=== PATIENT | female | born 1995 | race Caucasian/White ===

== ENCOUNTER 2018-11-04 14:46 | Emergency (ER) | payer OTHER ==
--- OUTSIDE RECORDS SUMMARY | 2018-11-04 14:49 | XMS REPORT | Continuity of Care Document ---
:1995 Author Organization Interface Problems Problem Status Onset Date Classification Date Comments Source Reported Medications Medication Details Route Status Patient Ordering Order Source Instructions Provider Date Allergies, Adverse Reactions, Alerts Substance Category Reaction Severity Reaction Status Date Comments Source type Reported Immunizations Immunization Date Given Site Status Last Updated Comments Source Results Order Results Value Reference Date Interpretation Comments Source Name Range Vital Signs Vital Sign Value Date Comments Source Encounters Location Location Encounter Encounter Reason Attending ADM DC Status Source Details Type Number For Provider Date Date Visit Outpatient [id number] CARLEEN 12/08 Active [facility] Procedures Procedure Code Date Perfomer Comments Source
--- NOTE | 2018-11-04 17:12 | RAD REPORT ---
EXAM DESCRIPTION: RAD -Hand Left 3 View - 11/04/2018 4:59 pm CLINICAL HISTORY: Left hand pain status post injury FINDINGS: No fracture or dislocation is seen. The patient was unable to remove a ring which overlies the fourth proximal phalanx limiting bony eval uation
--- NOTE | 2018-11-04 18:03 | ER ---
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 Transition of care: patient was not received from another setting of care. Onset of symptoms was November 04, 2018. Risk Assessment: Do you want to hurt yourself or someone else? Patient reports no desire to harm self or others. Initial Sepsis Screen: Does the patient meet any 2 criteria? No. Patient's initial sepsis screen is negative. Does the patient have a suspected source of infection? No. Patient's initial sepsis screen is negative. Care prior to arrival: None. 15:11 Method Of Arrival: Ambulatory hb 15:11 Acuity: NIXON 4 hb Triage Assessment: 17:48 General: Appears uncomfortable, Behavior is calm, cooperative. Musculoskeletal:. ls4 18:09 Injury Description: CRUSHED IN DOOR. NO OUTWARD INJURY. PT REPORTS PAIN. 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 - Social history:: Smoking status: Patient/guardian denies using tobacco. - Ebola Screening: : No symptoms or risks identified at this time. Screenin:48 Abuse screen: Denies threats or abuse. Denies injuries from another. Nutritional ls4 screening: No deficits noted. Tuberculosis screening: No symptoms or risk factors identified. Fall Risk None identified. Assessment: 18:06 General: Appears in no apparent distress. Behavior is cooperative. Pain: Complains of ls4 pain in left hand Pain currently is 10 out of 10 on a pain scale. Unable to use pain scale. FLACC scale score is 2 out of 10. Neuro: No deficits noted. Cardiovascular: No deficits noted. Respiratory: No deficits noted. Musculoskeletal: No deficits noted. Vital Signs: 15:12 BP 131 / 85; Pulse 70; Resp 16; Temp 98.3; Pulse Ox 99% on R/A; Pain 10/10; hb ED Course: 14:49 Patient arrived in ED. as 15:12 Triage completed. hb 15:12 Arm band placed on. hb 17:00 Hand Left 3 View XRAY In Process Unspecified. EDMS 17:46 Laith Delaney PA is PHCP. [facility] 17:46 Young Rehman MD is Attending Physician. [facility] 17:47 Sallie Boothe, RN is Primary Nurse. ls4 17:48 Patient has correct armband on for positive identification. Placed in gown. Bed in low ls4 position. Side rails up X 1. 17:48 No provider procedures requiring assistance completed. ls4 18:06 Patient did not have IV access during this emergency room visit. ls4 Administered Medications: No medications were administered Outcome: 18:03 Discharge ordered by MD. [facility] 18:08 Discharged to home ambulatory, with family. ls4 18:08 Condition: stable 18:27 Discharge instructions given to patient, Instructed on discharge instructions, follow rb1 up and referral plans. Demonstrated understanding of instructions, follow-up care, Prescriptions given X none 18:27 Patient left the ED. rb1 Signatures: Dispatcher [employer] EDMS Laith Delaney PA PA jmm Martinez, Amelia as Barber, Rebecca, RN RN rb1 Hina Marsh RN RN Sallie Boothe, RN RN ls4
--- NOTE | 2018-11-04 18:04 | EDPHYS ---
Physician Documentation [facility] Name: Yaneth Gonzalez Age: 23 yrs Sex: Female : 1995 Arrival Date: 11/04/2018 Time: 14:49 Bed 17 Private MD: ED Physician Young Rehman HPI: 11/04 17:58 This 23 yrs old Female presents to ER via Ambulatory with complaints of Hand jmm Injury, Numbness Of Hand. 17:58 The patient or guardian reports injury, pain. Onset: The symptoms/episode jmm began/occurred acutely, just prior to arrival. Modifying factors: The symptoms are alleviated by nothing, the symptoms are aggravated by nothing. This is a 23 year old female with no chronic medical conditions that presents to the ED with left 4th finger pain after it was slammed in the door. Patient denies other injury. . 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 - Social history:: Smoking status: Patient/guardian denies using tobacco. - Ebola Screening: : No symptoms or risks identified at this time. ROS: 17:58 Constitutional: Negative for fever, chills, and weight loss, Cardiovascular: Negative jmm for chest pain, palpitations, and edema, Respiratory: Negative for shortness of breath, cough, wheezing, and pleuritic chest pain. 17:58 MS/extremity: Positive for injury or acute deformity, pain. 17:58 All other systems are negative. Exam: 17:58 Constitutional: This is a well developed, well nourished patient who is awake, alert, jmm and in no acute distress. Head/Face: atraumatic. Eyes: EOMI, no conjunctival erythema appreciated ENT: Moist Mucus Membranes Neck: Trachea midline, Supple Chest/axilla: Normal chest wall appearance and motion. Cardiovascular: Regular rate and rhythm. No edema appreciated Respiratory: Normal respirations, no respiratory distress appreciated Abdomen/GI: Non distended, soft Back: Normal ROM Skin: General appearance color normal 17:58 Musculoskeletal/extremity: left proximal 4th finger ttp, < 2 sec distal cap refill, FROM appreciated, NVI. 17:58 Skin: Appearance: Color: normal in color. 17:58 Neuro: Orientation: is normal, Mentation: is normal, Memory: is normal. 17:58 Psych: Behavior/mood is pleasant, cooperative. Vital Signs: 15:12 BP 131 / 85; Pulse 70; Resp 16; Temp 98.3; Pulse Ox 99% on R/A; Pain 10/10; hb MDM: 17:58 Patient medically screened. [facility] 18:00 Data reviewed: vital signs, nurses notes, radiologic studies, plain films. Counseling: edyta I had a detailed discussion with the patient and/or guardian regarding: the historical points, exam findings, and any diagnostic results supporting the discharge/admit diagnosis, radiology results, the need for outpatient follow up, to return to the emergency department if symptoms worsen or persist or if there are any questions or concerns that arise at home. ED course: rings were removed from the left 4th finger, NVI. plain films negative. patient advised to repeat study if pain persists after 1 week. . 11/04 15:16 Order name: Hand Left 3 View XRAY; Complete Time: 17:34 hb Administered Medications: No medications were administered Disposition: 11/04/18 18:03 Discharged to Home. Impression: Contusion of left ring finger without damage to nail. - Condition is Stable. - Discharge Instructions: Finger Sprain, Adult. - Work release form, Medication Reconciliation Form, Thank You Letter, Antibiotic Education, Prescription Opioid Use form. - Follow up: Private Physician; When: 2 - 3 days; Reason: Recheck today's complaints, Continuance of care, Re-evaluation by your physician. Addendum: 11/11/2018 09:33 Co-signature as Attending Physician, Young Rehman MD I agree with the assessment and k dr plan of care. Signatures: Dispatcher [employer] EDMS Kathe Sharma, JAIDEN-C JAIDEN-Young Whalen MD MD kdr Mickail, Joel, PA PA jmm Barber, Rebecca, VONDA FERRARI [facility] Hina Marsh RN RN Corrections: (The following items were deleted from the chart) 11/04 18:27 18:03 11/04/2018 18:03 Discharged to Home. Impression: Contusion of left ring finger rb1 without damage to nail. Condition is Stable. Forms are Medication Reconciliation Form, Thank You Letter, Antibiotic Education, Prescription Opioid Use. Follow up: Private Physician; When: 2 - 3 days; Reason: Recheck today's complaints, Continuance of care, Re-evaluation by your physician. edyta
== END 2018-11-04 18:27 | disposition home or self-care (01) ==
LOC: ER 14:46
DX: S60.042A Contusion of left ring finger without damage to nail, initial encounter (principal); W23.0XXA Caught, crushed, jammed, or pinched between moving objects, initial encounter

== ENCOUNTER 2018-12-21 13:08 | Emergency (ER) | payer OTHER ==
--- OUTSIDE RECORDS SUMMARY | 2018-12-21 13:10 | XMS REPORT | Continuity of Care Document ---
[...] Number For Provider Date Date Visit Outpatient [id number] CARLEEN 12/08 Active [facility] Procedures Procedure Code Date Perfomer Comments Source
[2018-12-21 14:18] LABS: Absolute Lymphocytes (CBC) 1.6 K/uL (0.7-4.9); Absolute Monocytes 0.6 K/uL (0.1-1.3); Basophils % 0.5 % (0-1.3); Eosinophils % 2.1 % (0-4.4); Hematocrit 41.3 % (36.0-45.0); Lymphocytes % 25.2 % (15.3-44.8); MPV 11.1 fL (7.6-11.3); Monocytes % 9.6 % (3.3-12.3); RBC Red Blood Cell Count 4.46 M/uL (3.86-4.86)
[2018-12-21 14:30] LABS: BUN Blood Urea Nitrogen 11 mg/dL (7-18); Bicarbonate 29 mmol/L (21-32); Glucose Level 77 mg/dL (74-106); Potassium 3.6 mmol/L (3.5-5.1); Sodium Level 140 mmol/L (136-145)
[2018-12-21] MEDS ORDERED: KETOROLAC 30 MG/ML INJ ONE (14:46)
[2018-12-21] MEDS ORDERED: NA CHLORIDE 0.9% 1,000 ML ONE (14:46)
--- NOTE | 2018-12-21 15:40 | RAD REPORT ---
EXAM DESCRIPTION: CT - Abdomen Pelvis W Contrast - 12/21/2018 3:12 pm CLINICAL HISTORY: Abdominal pain with vomiting COMPARISON: none. TECHNIQUE: Computed axial tomography of the abdomen pelvis was obtained. 100 cc Isovue-300 was admin istered intravenously. Oral contrast was not requested which limits evaluation of bowel. All CT scans are performed using dose optimization technique as appropriate and may include automated exposure control or mA/KV adjustment according to patient size. FINDINGS: The liver, spleen, pancreas, adrenal and left kidney appear unremarkable. Minimal right hy dronephrosis. A genitourinary calculus is not seen There is no evidence of diverticulitis. The appendix is normal. A 2 centimeter irregularly-shaped right ovarian cyst is present. Small amount of free fluid Moderate amount of stool throughout the colon IMPRESSION: A 2 centimeter irregularly-shaped right ovarian cyst is present. Small amount of free fl uid. The cyst probably has recently ruptured
--- NOTE | 2018-12-21 15:57 | ER ---
Nurse's Notes [facility] Name: Yaneth Gonzalez Age: 23 yrs Sex: Female : 1995 Arrival Date: 12/21/2018 Time: 13:09 Bed 30 Private MD: Diagnosis: Unspecified ovarian cysts Presentation: 12/21 13:25 Presenting complaint: Patient states: nausea vomiting lower abdominal pain started ch today. Transition of care: patient was not received from another setting of care. Onset of symptoms was December 21, 2018. Risk Assessment: Do you want to hurt yourself or someone else? Patient reports no desire to harm self or others. Initial Sepsis Screen: Does the patient meet any 2 criteria? No. Patient's initial sepsis screen is negative. Does the patient have a suspected source of infection? No. Patient's initial sepsis screen is negative. Care prior to arrival: None. 13:25 Method Of Arrival: Ambulatory 13:25 Acuity: NIXON 3 Triage Assessment: 13:27 General: Appears in no apparent distress. comfortable, Behavior is calm, cooperative, appropriate for age. Pain: Complains of pain in right lower quadrant and left lower quadrant Pain currently is 9 out of 10 on a pain scale. GI: Reports lower abdominal pain. 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 - Social history:: Smoking status: Patient/guardian denies using tobacco, Patient uses alcohol, occasionally. Patient/guardian denies using street drugs. - Ebola Screening: : Patient negative for fever greater than or equal to 101.5 degrees Fahrenheit, and additional compatible Ebola Virus Disease symptoms Patient denies exposure to infectious person Patient denies travel to an Ebola-affected area in the 21 days before illness onset No symptoms or risks identified at this time. Screenin:30 Abuse screen: Denies threats or abuse. Denies injuries from another. Nutritional ca1 screening: No deficits noted. Tuberculosis screening: No symptoms or risk factors identified. Fall Risk None identified. Assessment: 13:30 General: Appears in no apparent distress. comfortable, Behavior is calm, cooperative, ca1 appropriate for age. Pain: Complains of pain in abdomen and left lower quadrant and right lower quadrant Pain does not radiate. Pain currently is 9 out of 10 on a pain scale. Quality of pain is described as tender, Pain began 1 day ago. Also complains of decreased appetite, nausea. Neuro: Level of Consciousness is awake, alert, obeys commands, Oriented to person, place, time, situation. Cardiovascular: Heart tones S1 S2 present Capillary refill < 3 seconds Patient's skin is warm and dry. Respiratory: Airway is patent Respiratory effort is even, unlabored, Respiratory pattern is regular, symmetrical, Breath sounds are clear bilaterally. GI: Abdomen is round non-distended, Bowel sounds present X 4 quads. Abd is soft X 4 quads Abdomen is tender to palpation in abdomen and left lower quadrant and right lower quadrant Reports nausea, vomiting, since today. : No signs and/or symptoms were reported regarding the genitourinary system. EENT: No signs and/or symptoms were reported regarding the EENT system. Derm: Skin is intact, is healthy with good turgor, Skin is pink, warm \T\ dry. Musculoskeletal: Circulation, motion, and sensation intact. Capillary refill < 3 seconds. 14:30 Reassessment: Patient appears in no apparent distress at this time. Patient and/or ca1 family updated on plan of care and expected duration. Pain level reassessed. Patient is alert, oriented x 3, equal unlabored respirations, skin warm/dry/pink. 15:33 Reassessment: Patient appears in no apparent distress at this time. Patient and/or ca1 family updated on plan of care and expected duration. Pain level reassessed. Patient is alert, oriented x 3, equal unlabored respirations, skin warm/dry/pink. Patient states feeling better. Vital Signs: 13:27 BP 120 / 75; Pulse 74; Resp 16; Temp 98.7; Pulse Ox 100% on R/A; Weight 74.84 kg; ch Height 5 ft. 4 in. (162.56 cm); Pain 9/10; 14:30 BP 115 / 82; Pulse 78; Resp 18; Pulse Ox 97% on R/A; ca1 15:33 BP 117 / 82; Pulse 71; Resp 18; Pulse Ox 100% on R/A; ca1 13:27 Body Mass Index 28.32 (74.84 kg, 162.56 cm) ED Course: 13:09 Patient arrived in ED. as 13:25 Kathe Sharma FNP-C is [facility]. kb 13:25 Sky Che MD is Attending Physician. kb 13:26 Triage completed. 13:27 Arm band placed on left wrist. Patient placed in an exam room, on a stretcher. ch 13:30 Patient has correct armband on for positive identification. Placed in gown. Bed in low ca1 position. Call light in reach. Side rails up X 1. Pulse ox on. NIBP on. Warm blanket given. 13:30 No provider procedures requiring assistance completed. ca1 13:52 Dorita Seals, RN is Primary Nurse. ca1 14:00 Inserted saline lock: 20 gauge in right antecubital area, using aseptic technique. ca1 Blood collected. 15:12 CT completed. Patient tolerated procedure well. Patient moved to CT via wheelchair. Patient moved back from CT. 15:14 CT Abd/Pelvis - W/Contrast In Process Unspecified. EDMS 16:10 IV discontinued, intact, bleeding controlled, No redness/swelling at site. Pressure ca1 dressing applied. Administered Medications: 14:33 Drug: NS 0.9% 1000 ml Route: IV; Rate: 1000 ml; Site: right antecubital; ca1 15:30 Follow up: Response: No adverse reaction; IV Status: Completed infusion ca1 14:34 Drug: TORadol 30 mg Route: IVP; Site: right antecubital; ca1 15:30 Follow up: Response: No adverse reaction; Pain is decreased ca1 Outcome: 15:57 Discharge ordered by . kb 16:12 Discharged to home ambulatory. ca1 16:12 Condition: stable 16:12 Discharge instructions given to patient, Instructed on discharge instructions, follow up and referral plans. medication usage, Demonstrated understanding of instructions, follow-up care, medications, Prescriptions given X 2. 16:13 Patient left the ED. ca1 Signatures: Dispatcher [employer] EDMS Kathe Sharma FNP-C FNP-Karina Rivera, RN RN Monica Sam Amelia as Dorita Seals, VONDA RN ca1
--- NOTE | 2018-12-21 15:58 | EDPHYS ---
Physician Documentation [facility] Name: Yaneth Gonzalez Age: 23 yrs Sex: Female : 1995 Arrival Date: 12/21/2018 Time: 13:09 Bed 30 Private MD: ED Physician Sky Che HPI: 12/21 14:46 This 23 yrs old Female presents to ER via Ambulatory with complaints of kb Abdominal Pain. 14:46 The patient presents with abdominal pain in the lower abdomen. Onset: The kb symptoms/episode began/occurred 2 day(s) ago. The symptoms do not radiate. Associated signs and symptoms: Pertinent positives: nausea and vomiting, Pertinent negatives: anorexia, blood in stools, chest pain, constipation, diarrhea, dysuria, fever, headache, hematuria, palpitations, shortness of breath, vaginal discharge, vomiting blood. The symptoms are described as constant. Modifying factors: The symptoms are alleviated by nothing, the symptoms are aggravated by pressure. Severity of pain: At its worst the pain was moderate in the emergency department the pain is unchanged. The patient has not experienced similar symptoms in the past. The patient has not recently seen a physician. 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 - Social history:: Smoking status: Patient/guardian denies using tobacco, Patient uses alcohol, occasionally. Patient/guardian denies using street drugs. - Ebola Screening: : Patient negative for fever greater than or equal to 101.5 degrees Fahrenheit, and additional compatible Ebola Virus Disease symptoms Patient denies exposure to infectious person Patient denies travel to an Ebola-affected area in the 21 days before illness onset No symptoms or risks identified at this time. ROS: 14:45 Constitutional: Negative for fever, chills, and weight loss, ENT: Negative for injury, kb pain, and discharge, Neck: Negative for injury, pain, and swelling, Cardiovascular: Negative for chest pain, palpitations, and edema, Respiratory: Negative for shortness of breath, cough, wheezing, and pleuritic chest pain, Back: Negative for injury and pain, : Negative for injury, bleeding, discharge, and swelling, MS/Extremity: Negative for injury and deformity, Skin: Negative for injury, rash, and discoloration, Neuro: Negative for headache, weakness, numbness, tingling, and seizure. 14:45 Abdomen/GI: Positive for abdominal pain, nausea and vomiting, Negative for constipation, abdominal cramps, abdominal distension, anorexia. Exam: 14:45 Constitutional: This is a well developed, well nourished patient who is awake, alert, kb and in no acute distress. Head/Face: Normocephalic, atraumatic. ENT: Nares patent. No nasal discharge, no septal abnormalities noted. Tympanic membranes are normal and external auditory canals are clear. Oropharynx with no redness, swelling, or masses, exudates, or evidence of obstruction, uvula midline. Mucous membranes moist. Neck: Trachea midline, no thyromegaly or masses palpated, and no cervical lymphadenopathy. Supple, full range of motion without nuchal rigidity, or vertebral point tenderness. No Meningismus. Chest/axilla: Normal chest wall appearance and motion. Nontender with no deformity. No lesions are appreciated. Cardiovascular: Regular rate and rhythm with a normal S1 and S2. No gallops, murmurs, or rubs. Normal PMI, no JVD. No pulse deficits. Respiratory: Lungs have equal breath sounds bilaterally, clear to auscultation and percussion. No rales, rhonchi or wheezes noted. No increased work of breathing, no retractions or nasal flaring. Back: No spinal tenderness. No costovertebral tenderness. Full range of motion. Skin: Warm, dry with normal turgor. Normal color with no rashes, no lesions, and no evidence of cellulitis. MS/ Extremity: Pulses equal, no cyanosis. Neurovascular intact. Full, normal range of motion. Neuro: Awake and alert, GCS 15, oriented to person, place, time, and situation. Cranial nerves II-XII grossly intact. Motor strength 5/5 in all extremities. Sensory grossly intact. Cerebellar exam normal. Normal gait. 14:45 Abdomen/GI: Inspection: abdomen appears normal, Bowel sounds: normal, in all quadrants, Palpation: soft, in all quadrants, moderate abdominal tenderness, in the right lower quadrant and left lower quadrant. Vital Signs: 13:27 BP 120 / 75; Pulse 74; Resp 16; Temp 98.7; Pulse Ox 100% on R/A; Weight 74.84 kg; ch Height 5 ft. 4 in. (162.56 cm); Pain 9/10; 14:30 BP 115 / 82; Pulse 78; Resp 18; Pulse Ox 97% on R/A; ca1 15:33 BP 117 / 82; Pulse 71; Resp 18; Pulse Ox 100% on R/A; ca1 13:27 Body Mass Index 28.32 (74.84 kg, 162.56 cm) ch MDM: 13:30 Patient medically screened. kb 14:45 Data reviewed: vital signs, nurses notes. Data interpreted: Pulse oximetry: on room air kb is 97 %. Interpretation: normal. 15:56 Counseling: I had a detailed discussion with the patient and/or guardian regarding: the kb historical points, exam findings, and any diagnostic results supporting the discharge/admit diagnosis, lab results, radiology results, the need for outpatient follow up, a family practitioner, an OB/Gyne specialist, to return to the emergency department if symptoms worsen or persist or if there are any questions or concerns that arise at home. 12/21 13:41 Order name: Basic Metabolic Panel; Complete Time: 14:30 kb 12/21 13:41 Order name: CBC with Diff; Complete Time: 14:29 kb 12/21 14:11 Order name: Urine Dipstick--Ancillary (enter results) bd 12/21 14:11 Order name: Urine --Ancillary (enter results) bd 12/21 14:30 Order name: CT Abd/Pelvis - W/Contrast; Complete Time: 15:56 kb 12/21 13:41 Order name: IV Saline Lock; Complete Time: 14:09 kb 12/21 13:41 Order name: Labs collected and sent; Complete Time: 14:09 kb 12/21 13:41 Order name: Urine Test (obtain specimen); Complete Time: 14:09 kb 12/21 13:41 Order name: Urine Dipstick-Ancillary (obtain specimen); Complete Time: 14:09 kb Administered Medications: 14:33 Drug: NS 0.9% 1000 ml Route: IV; Rate: 1000 ml; Site: right antecubital; ca1 15:30 Follow up: Response: No adverse reaction; IV Status: Completed infusion ca1 14:34 Drug: TORadol 30 mg Route: IVP; Site: right antecubital; ca1 15:30 Follow up: Response: No adverse reaction; Pain is decreased ca1 Disposition: 18:03 Co-signature as Attending Physician, Sky Che MD. rn Disposition: 12/21/18 15:57 Discharged to Home. Impression: Unspecified ovarian cysts. - Condition is Stable. - Discharge Instructions: Ovarian Cyst, [id number]. - Prescriptions for Zofran 4 mg Oral Tablet - take 1 tablet by ORAL route every 6 hours As needed; 20 tablet. Diclofenac Sodium 75 mg Oral Tablet, Delayed Release (E.C.) - take 1 tablet by ORAL route 2 times per day As needed; 30 tablet. - Medication Reconciliation Form, Thank You Letter, Antibiotic Education, Prescription Opioid Use, Work release form form. - Follow up: Emergency Department; When: As needed; Reason: Worsening of condition. Follow up: Private Physician; When: 2 - 3 days; Reason: Recheck today's complaints, Continuance of care, Re-evaluation by your physician. Signatures: Dispatcher [employer] EDMS Kathe Sharma, HEAD STOCK OPERATOR-C HEAD STOCK OPERATOR-CkKarina Conteh, RN RN Sky Che MD MD rn AcobDorita RN RN ca1 Corrections: (The following items were deleted from the chart) 16:13 15:57 12/21/2018 15:57 Discharged to Home. Impression: Unspecified ovarian cysts. ca1 Condition is Stable. Forms are Medication Reconciliation Form, Thank You Letter, Antibiotic Education, Prescription Opioid Use. Follow up: Emergency Department; When: As needed; Reason: Worsening of condition. Follow up: Private Physician; When: 2 - 3 days; Reason: Recheck today's complaints, Continuance of care, Re-evaluation by your physician. kb
[2018-12-21 19:49] LABS: Urine Blood NEGATIVE (NEG); Urine Glucose NEGATIVE (NEG); Urine Protein NEGATIVE (NEG); Urine pH 5.5 (5.0-7.0)
== END 2018-12-21 16:13 | disposition home or self-care (01) ==
LOC: ER 13:08
DX: N83.209 Unspecified ovarian cyst, unspecified side (principal)
CPT/HCPCS: 36415; 74177; 80048; 81003; 81025; 85025; 96361; 96374; 99284; J7030; Q9967

== ENCOUNTER 2019-01-09 18:40 | Emergency (ER) | payer OTHER ==
--- OUTSIDE RECORDS SUMMARY | 2019-01-09 18:42 | XMS REPORT | Continuity of Care Document ---
[...] Number For Provider Date Date Visit Outpatient [id number] CARLEEN 12/08 Active [facility] Isra Procedures Procedure Code Date Perfomer Comments Source
--- OUTSIDE RECORDS SUMMARY | 2019-01-09 18:42 | XMS REPORT ---
:1995 [facility] [address] [place] [address] Care Team Providers Name Role Phone Unavailable Unavailable Unavailable Problems This patient has no known problems. Allergies, Adverse Reactions, Alerts This patient has no known allergies or adverse reactions. Medications This patient has no known medications.
[2019-01-09] MEDS ORDERED: ACT CHARCOAL/SORB 50 GM/240ML ONE (19:11)
[2019-01-09] MEDS ORDERED: NA CHLORIDE 0.9% 1,000 ML ONE (19:11)
[2019-01-09] MEDS ORDERED: PROMETHAZINE 25 MG/ML VIAL ONE ×2 (19:19→21:13)
[2019-01-09] MEDS ORDERED: ACTIVATED CHARCOAL 25 GM/120 ML TUBE ONE (19:22)
[2019-01-09 19:38] LABS: Absolute Lymphocytes (CBC) 2.2 K/uL (0.7-4.9); Absolute Monocytes 0.7 K/uL (0.1-1.3); Absolute Neutrophil 5.3 K/uL (1.8-8.0); Basophils % 0.7 % (0-1.3); Lymphocytes % 25.9 % (15.3-44.8); MPV 11.4 fL (7.6-11.3); Monocytes % 8.7 % (3.3-12.3); RBC Red Blood Cell Count 4.34 M/uL (3.86-4.86)
[2019-01-09 19:53] LABS: Protime INR 0.97
[2019-01-09 19:59] LABS: ALT/SGPT 33 U/L (12-78); AST/SGOT 18 U/L (15-37); Albumin 4.6 g/dL (3.4-5.0); Alkaline Phosphatase 94 U/L (45-117); BUN Blood Urea Nitrogen 15 mg/dL (7-18); Bicarbonate 27 mmol/L (21-32); Bilirubin Direct < 0.1 mg/dL (0-0.2); Bilirubin Total 0.3 mg/dL (0.2-1.0); Glucose Level 98 mg/dL (74-106); Potassium 3.4 mmol/L (3.5-5.1); Protein, Total 8.1 g/dL (6.4-8.2); Sodium Level 140 mmol/L (136-145)
[2019-01-09 21:41] LABS: Urine Blood NEGATIVE (NEG); Urine Glucose NEGATIVE (NEG); Urine Protein NEGATIVE (NEG)
[2019-01-09 21:41] LABS: Barbiturates NEGATIVE (NEGATIVE); Benzodiazepines NEGATIVE (NEGATIVE); Cocaine NEGATIVE (NEGATIVE); METHAMPHETAM NEGATIVE (NEGATIVE); Methadone NEGATIVE (NEGATIVE); Opiates NEGATIVE (NEGATIVE); Phencyclidine NEGATIVE (NEGATIVE); THC Cannibis NEGATIVE (NEGATIVE)
[2019-01-10] MEDS ORDERED: POTASSIUM 25 MEQ EFFERV TAB ONE (07:49)
--- NOTE | 2019-01-10 08:45 | EKG ---
Test Date: 2019-01-10 Test Time: 01:05:02 Director Web: TORSTEN MEASUREMENT RESULTS: Intervals: Rate: 63 VT: 162 QRSD: 94 QT: 392 QTc: 401 [place]: P: 55 VT: 162 QRS: 55 T: 23 INTERPRETIVE STATEMENTS: Normal sinus rhythm with sinus arrhythmia Normal ECG Compared to ECG 01/09/2019 18:46:11 No significant changes Electronically Signed On 01-10-19 08:44:45 CDT by Bennett Baker
--- NOTE | 2019-01-10 08:48 | EKG ---
Test Date: 2019-01-09 Test Time: 18:46:11 Wet Char Conveyor Tender: MEASUREMENT RESULTS: Intervals: Rate: 80 NH: 148 QRSD: 96 QT: 378 QTc: 435 [place]: P: 60 NH: 148 QRS: 44 T: 30 INTERPRETIVE STATEMENTS: Normal sinus rhythm Normal ECG No previous ECG available for comparison Electronically Signed On 01-10-19 08:47:40 CDT by Bennett Baker
--- NOTE | 2019-01-10 10:10 | ER ---
Nurse's Notes [facility] Name: Yaneth Gonzalez Age: 23 yrs Sex: Female : 1995 Arrival Date: 01/09/2019 Time: 18:40 Bed 4 Private MD: Diagnosis: Suicidal ideations;Suicide attempt Presentation: 01/09 18:46 Presenting complaint: Patient states: i took around 15- 20 tablets of flexeril about 20 hj mins ago; pt on triage was anxious and crying; " i feel like im overwhelm tight now". Transition of care: patient was not received from another setting of care. Onset of symptoms was January 09, 2019. Risk Assessment: Do you want to hurt yourself or someone else? Patient reports no desire to harm self or others. Initial Sepsis Screen: Does the patient meet any 2 criteria? No. Patient's initial sepsis screen is negative. Does the patient have a suspected source of infection? No. Patient's initial sepsis screen is negative. Care prior to arrival: None. 18:46 Method Of Arrival: Ambulatory 18:46 Acuity: NIXON 2 hj 18:51 Note Denilson MILES called poison control and was recommended to do activated charcoal and hj administer fluids;. Triage Assessment: 18:48 General: Appears in no apparent distress. uncomfortable, Behavior is calm, cooperative, hj appropriate for age. Pain: Complains of pain in abdomen. Historical: - Allergies: 18:47 No Known Allergies; hj - Home Meds: 18:47 None [Active]; hj - PMHx: 18:47 Ovarian cyst; polycystic ovary disease; hj - PSHx: 18:47 ovarian cyst removed.; hj - Immunization history:: Adult Immunizations up to date. - Social history:: Smoking status: Patient/guardian denies using tobacco, Patient/guardian denies using alcohol. - Ebola Screening: : Patient negative for fever greater than or equal to 101.5 degrees Fahrenheit, and additional compatible Ebola Virus Disease symptoms Patient denies exposure to infectious person Patient denies travel to an Ebola-affected area in the 21 days before illness onset. Screenin:48 Abuse screen: Denies threats or abuse. Denies injuries from another. Nutritional hj screening: No deficits noted. Tuberculosis screening: No symptoms or risk factors identified. Fall Risk None identified. Assessment: 19:33 Reassessment: pt denies any other SI attempts. pt stated SI started 3 to 4 months CLINICAL RN LIAISON. ak1 pt asked to call her mother and wishes for her mother to be the only visitor, pt does not wish to see her at this time and registration has been notified. pt informed of process to be medically cleared then evaluated for inpatient psychiatric facility. . General: Appears in no apparent distress. Behavior is calm, cooperative, appropriate for age. Pain: Denies pain. Neuro: Level of Consciousness is awake, alert, obeys commands, Oriented to person, place, time, situation, Licensed Embalmer are equal bilaterally Moves all extremities. Speech is normal, Facial symmetry appears normal. Cardiovascular: No deficits noted. Respiratory: No deficits noted. GI: No signs and/or symptoms were reported involving the gastrointestinal system. : No signs and/or symptoms were reported regarding the genitourinary system. EENT: No signs and/or symptoms were reported regarding the EENT system. Derm: No signs and/or symptoms reported regarding the dermatologic system. Musculoskeletal: No signs and/or symptoms reported regarding the musculoskeletal system. 21:50 Reassessment: Patient appears in no apparent distress at this time. No changes from ak1 previously documented assessment. Patient and/or family updated on plan of care and expected duration. Pain level reassessed. Patient is alert, oriented x 3, equal unlabored respirations, skin warm/dry/pink. mother at bedside stated pt can not take zoloft due to increased suicidal ideations while on zoloft previously. pt mother stated pt verbalized overdosing due to and asked that the not be able to contact pt. pt verbalized that she does not wish to see or speak to her at this time. 21:50 Reassessment: pt ambulated to restroom with steady gait. pt sister at bedside. sitter ak1 remains at bedside. 01/10 02:20 Reassessment: Patient's mother Celine Alcala requested she be notified when patient dd is transferred. Number is [phone].. 03:21 Reassessment: Patient appears in no apparent distress at this time. pt resting with ak1 even unlabored resp waiting on psychiatric facility acceptance. 04:24 Reassessment: Patient appears in no apparent distress at this time. No changes from ak1 previously documented assessment. 04:57 Reassessment: [facility]ary [facility]. ak1 07:00 Reassessment: RECD REPORT FROM KENZIE FERRARI. 23YO WF P/W SI AND OVERDOSE. PT MEDICALLY bp CLEARED, PSYCH PLACEMENT PENDING. 07:00 Reassessment: Pt resting in bed with eyes closed, respirations even an unlabored, skin aa5 is pink/warm/dry. NSR on monitor. . 07:06 Reassessment: report given to Zay Redmond RN and Cain Mendoza RN. ak1 07:40 General: Appears comfortable. Pain: Denies pain. Neuro: Level of Consciousness is aa5 awake, alert, obeys commands, Oriented to person, place, time, situation, Appropriate for age Moves all extremities. Speech is normal, Facial symmetry appears normal, Pupils are PERRLA. Cardiovascular: Rhythm is sinus rhythm. Respiratory: Airway is patent Respiratory effort is even, unlabored, Respiratory pattern is regular, symmetrical. Derm: Skin is pink, warm \\T\\ dry. 07:45 Reassessment: Pt easy to awaken to verbal stimuli. Notified pt belongings have to be aa5 taken away outside her room for psych precautions. Pt began to cry and states "you are ruining my life and I still want to call my mom to talk to her because she helps keep me calm". Notified pt that she can call her mom using the ER's phone. Told pt to call her mom using her cell phone at this time to notify her that her belongings will be taken away at this time. Pt upset, states "my mom says you are not touching any of my stuff until she gets here". Notified pt her belongings may be released to her mom per her request. Pt's belongings with pt's sitter at this time awaiting to be picked up by pt's mother. Pt with cell phone at bedside at this time, awaiting on her mom. Pt sitting up in bed awaiting breakfast tray at this time. . 07:50 Reassessment: Pt states "I wanted to hurt myself yesterday but not today, right now I aa5 just want to leave". Pt states "my mom can help me", pt also states she is willing to follow-up outpatient with mother's support. Notified pt that Doctor will notified. Dr. Corado was notified. . 08:22 Reassessment: Pt given breakfast tray at this time. . aa5 08:40 Reassessment: Patient is alert, oriented x 3, equal unlabored respirations, skin aa5 warm/dry/pink. Pt's mother at bedside. Pt finished eating breakfast. . 09:59 Reassessment: Patient appears in no apparent distress at this time. No changes from ch previously documented assessment. pt in room, sitting upright, resps even and unlabored, no s/s of distress. pt is talking to her family and doloris the tech. awaiting physician to speak with pt and family. Overdose: 01/09 21:52 Patient took 15 Flexeril pills. Overdose occurred 30 minuets prior to arrival. ak1 Vital Signs: 18:48 BP 136 / 91; Pulse 79; Resp 18; Temp 99.0(TE); Pulse Ox 98% on R/A; Weight 74.84 kg; hj Height 5 ft. 4 in. (162.56 cm); 20:43 Temp 98(T); ag4 21:50 BP 124 / 84; Pulse 70; Resp 14; Pulse Ox 99% on R/A; Pain 0/10; ak1 23:06 BP 96 / 59; Pulse 83; Resp 17; Pulse Ox 95% on R/A; dd 23:06 Pain 0/10; dd 01/10 00:07 BP 106 / 70; Pulse 70; Resp 12; Pulse Ox 95% on R/A; Pain 0/10; dd 01:08 BP 112 / 73; Pulse 74; Resp 17; Pulse Ox 96% on R/A; dd 02:04 BP 114 / 74; Pulse 65; Resp 16; Pulse Ox 99% on R/A; dd 03:02 BP 102 / 69; Pulse 80; Resp 12; Pulse Ox 97% on R/A; em4 03:46 BP 102 / 69; Pulse 80; Resp 11; Pulse Ox 98% on R/A; em4 04:17 BP 98 / 61; Pulse 73; Resp 12; Pulse Ox 95% on R/A; em4 04:50 BP 100 / 61; Pulse 64; Resp 16; Temp 98.4; Pulse Ox 100% on R/A; mw2 07:15 BP 92 / 73; Pulse 74; Resp 16 S; Temp 98.3(O); Pulse Ox 97% on R/A; Pain 0/10; aa5 08:45 BP 116 / 71; Pulse 74; Resp 18 S; Pulse Ox 99% on R/A; aa5 10:18 BP 124 / 83; Pulse 78; Resp 16; Temp 98.0(O); Pulse Ox 99% on R/A; mh5 01/09 18:48 Body Mass Index 28.32 (74.84 kg, 162.56 cm) ED Course: 01/09 18:40 Patient arrived in ED. mr 18:45 Inserted saline lock: 18 gauge in right antecubital area, using aseptic technique. ds4 Blood collected. 18:47 Triage completed. hj 18:48 Denilson Bautista PA is PHCP. jr8 18:48 Yan Corado MD is Attending Physician. jr8 18:48 Arm band placed on right wrist. hj 18:48 Patient has correct armband on for positive identification. Placed in gown. Bed in low hj position. Call light in reach. Side rails up X 1. 19:29 Safety checks: Items removed: yes. Door open/sign placed on door: Patient placed in ag4 hallway bed. yes. Family/friend present: no. Sitter present: Yes. 19:33 Kenzie De La Rosa RN is Primary Nurse. ak1 19:44 Safety checks: Items removed: yes. Door open/sign placed on door: Patient placed in ag4 hallway bed. yes. Family/friend present: no. Sitter present: Yes. 19:59 Safety checks: Items removed: yes. Door open/sign placed on door: Patient placed in ag4 hallway bed. yes. Family/friend present: no. Sitter present: Yes. 20:14 Safety checks: Items removed: yes. Door open/sign placed on door: Patient placed in ag4 hallway bed. yes. Family/friend present: no. Sitter present: Yes. 20:29 Safety checks: Items removed: yes. Door open/sign placed on door: Patient placed in ag4 hallway bed. yes. Family/friend present: no. Sitter present: Yes. 20:45 Safety checks: Items removed: yes. Door open/sign placed on door: Family/friend ag4 present: yes. Family/friends encouraged to stay with patient. Sitter present: Yes. 21:00 Safety checks: Items removed: yes. Door open/sign placed on door: Patient placed in ag4 hallway bed. yes. Family/friend present: yes. Sitter present: Yes. 21:14 Safety checks: Items removed: yes. Door open/sign placed on door: Patient placed in ag4 hallway bed. yes. Family/friend present: yes. Family/friends encouraged to stay with patient. Sitter present: Yes. 21:28 Safety checks: Items removed: yes. Door open/sign placed on door: Patient placed in ag4 hallway bed. yes. Family/friend present: no. Sitter present: Yes. 21:45 Safety Checks: Personal items have been removed. The door is open or patient has been ak1 placed in a hallway bed/chair. A family member and/or friend is present and encouraged to stay. Sitter present at this time. 22:00 Safety Checks: Personal items have been removed. The door is open or patient has been dd placed in a hallway bed/chair. Patientrestingin bed with eyes closed A family member and/or friend is present and encouraged to stay. There are no family/friend visitors at this time Sitter present at this time. 22:15 Safety Checks: Personal items have been removed. The door is open or patient has been dd placed in a hallway bed/chair. There are no family/friend visitors at this time Sitter present at this time. Pt resting in bed with eyes closed. 22:30 Safety Checks: Personal items have been removed. The door is open or patient has been dd placed in a hallway bed/chair. There are no family/friend visitors at this time Sitter present at this time. Patient resting in bed with eyes closed. 22:46 Safety Checks: Personal items have been removed. The door is open or patient has been dd placed in a hallway bed/chair. There are no family/friend visitors at this time Patient resting in bed with eyes closed. Sitter present at this time. 23:00 Safety Checks: Personal items have been removed. The door is open or patient has been dd placed in a hallway bed/chair. There are no family/friend visitors at this time Sitter present at this time. Patient resting in bed with eyes closed. 23:15 Safety Checks: Personal items have been removed. The door is open or patient has been dd placed in a hallway bed/chair. There are no family/friend visitors at this time Sitter present at this time. Patient resting in bed with eyes closed. 23:30 Safety Checks: Personal items have been removed. The door is open or patient has been dd placed in a hallway bed/chair. There are no family/friend visitors at this time Sitter present at this time. 23:40 Assisted to bathroom. pt ambulated to bathroom, steady gait. Void x1. dd 23:45 Safety Checks: Personal items have been removed. The door is open or patient has been dd placed in a hallway bed/chair. There are no family/friend visitors at this time Sitter present at this time. Patient resting in bed with eyes closed. 01/10 00:00 Safety Checks: Personal items have been removed. The door is open or patient has been dd placed in a hallway bed/chair. There are no family/friend visitors at this time Sitter present at this time. Patient resting in bed with eyes closed. 00:15 Safety Checks: Personal items have been removed. The door is open or patient has been dd placed in a hallway bed/chair. A family member and/or friend is present and encouraged to stay. Sitter present at this time. Patient resting in bed mother at bedside talking with patient. 00:30 Safety Checks: Personal items have been removed. The door is open or patient has been dd placed in a hallway bed/chair. A family member and/or friend is present and encouraged to stay. There are no family/friend visitors at this time Sitter present at this time. [facility] at [facility]. 00:45 Safety Checks: Personal items have been removed. The door is open or patient has been dd placed in a hallway bed/chair. There are no family/friend visitors at this time Sitter present at this time. Patient sitting in bed. 00:57 Urine --Ancillary (enter results) Sent. ak1 00:57 Urine Dipstick--Ancillary (enter results) Sent. ak1 01:00 Safety Checks: Personal items have been removed. The door is open or patient has been dd placed in a hallway bed/chair. There are no family/friend visitors at this time Sitter present at this time. 01:15 Safety Checks: Personal items have been removed. The door is open or patient has been dd placed in a hallway bed/chair. There are no family/friend visitors at this time Sitter present at this time. 01:18 Assisted to bathroom. Pt ambulated to the bathroom, Steady gait. BM x1/. dd 01:20 faxed patients information to all psych facilities. mw2 01:30 Safety Checks: Personal items have been removed. The door is open or patient has been dd placed in a hallway bed/chair. There are no family/friend visitors at this time Sitter present at this time. 01:33 Assisted to bathroom. Pt ambulated to bathroom. Steady gait. BM x 1. dd 01:45 Safety Checks: Personal items have been removed. The door is open or patient has been dd placed in a hallway bed/chair. There are no family/friend visitors at this time Sitter present at this time. Patient resting in bed. 02:00 Safety Checks: Personal items have been removed. The door is open or patient has been dd placed in a hallway bed/chair. There are no family/friend visitors at this time Sitter present at this time. 02:02 Assisted to bathroom. Pt ambulated to bathroom. Steady gait. BM x1. dd 02:15 Safety Checks: Personal items have been removed. The door is open or patient has been dd placed in a hallway bed/chair. There are no family/friend visitors at this time Sitter present at this time. Pt resting in bed. 02:27 Safety checks: Items removed: yes. Door open/sign placed on door: yes. Family/friend em4 present: no. Sitter present: Yes. 02:30 Safety Checks: Personal items have been removed. The door is open or patient has been ak1 placed in a hallway bed/chair. There are no family/friend visitors at this time Sitter present at this time. 02:45 Safety Checks: Personal items have been removed. The door is open or patient has been ak1 placed in a hallway bed/chair. There are no family/friend visitors at this time Sitter present at this time. 02:45 Safety checks: Items removed: yes. Door open/sign placed on door: yes. Family/friend em4 present: no. Sitter present: Yes. 03:00 Safety Checks: Personal items have been removed. The door is open or patient has been ak1 placed in a hallway bed/chair. There are no family/friend visitors at this time Sitter present at this time. 03:00 Safety checks: Items removed: yes. Door open/sign placed on door: yes. Family/friend em4 present: no. Sitter present: Yes. 03:15 Safety Checks: Personal items have been removed. The door is open or patient has been ak1 placed in a hallway bed/chair. There are no family/friend visitors at this time Sitter present at this time. 03:16 Safety checks: Items removed: yes. Door open/sign placed on door: yes. Family/friend em4 present: no. Sitter present: Yes. 03:30 Safety Checks: Personal items have been removed. The door is open or patient has been ak1 placed in a hallway bed/chair. There are no family/friend visitors at this time Sitter present at this time. 03:31 Safety checks: Items removed: yes. Door open/sign placed on door: yes. Family/friend em4 present: no. Sitter present: Yes. 03:45 Safety Checks: Personal items have been removed. The door is open or patient has been ak1 placed in a hallway bed/chair. There are no family/friend visitors at this time Sitter present at this time. 03:45 Safety checks: Items removed: yes. Door open/sign placed on door: yes. Family/friend em4 present: no. Sitter present: Yes. 03:59 Safety checks: Items removed: yes. Door open/sign placed on door: yes. Family/friend em4 present: no. Sitter present: Yes. 04:00 Safety Checks: Personal items have been removed. The door is open or patient has been ak1 placed in a hallway bed/chair. A family member and/or friend is present and encouraged to stay. Sitter present at this time. 04:15 Safety Checks: Personal items have been removed. The door is open or patient has been ak1 placed in a hallway bed/chair. A family member and/or friend is present and encouraged to stay. Sitter present at this time. 04:16 Safety checks: Items removed: yes. Door open/sign placed on door: yes. Family/friend em4 present: no. Sitter present: Yes. 04:30 Safety Checks: Personal items have been removed. The door is open or patient has been rr5 placed in a hallway bed/chair. A family member and/or friend is present and encouraged to stay. Sitter present at this time. 04:30 Safety checks: Items removed: yes. Door open/sign placed on door: yes. Family/friend ar5 present: no. Sitter present: Yes. 04:45 Safety Checks: Personal items have been removed. The door is open or patient has been rr5 placed in a hallway bed/chair. A family member and/or friend is present and encouraged to stay. Sitter present at this time. 04:45 Safety checks: Items removed: yes. Door open/sign placed on door: yes. Family/friend ar5 present: no. Sitter present: Yes. 05:00 Safety Checks: Personal items have been removed. The door is open or patient has been rr5 placed in a hallway bed/chair. There are no family/friend visitors at this time Sitter present at this time. 05:00 Safety checks: Items removed: yes. Door open/sign placed on door: yes. Family/friend ar5 present: no. Sitter present: Yes. 05:15 Safety Checks: Personal items have been removed. The door is open or patient has been rr5 placed in a hallway bed/chair. There are no family/friend visitors at this time Sitter present at this time. 05:15 Safety checks: Items removed: yes. Door open/sign placed on door: yes. Family/friend mw2 present: no. Sitter present: Yes. 05:30 Safety Checks: Personal items have been removed. The door is open or patient has been rr5 placed in a hallway bed/chair. There are no family/friend visitors at this time Sitter present at this time. 05:30 Safety Checks: Personal items have been removed. The door is open or patient has been ak1 placed in a hallway bed/chair. A family member and/or friend is present and encouraged to stay. There are no family/friend visitors at this time Sitter present at this time. 05:30 Safety checks: Items removed: yes. Door open/sign placed on door: yes. Family/friend mw2 present: no. Sitter present: Yes. 05:45 Safety Checks: Personal items have been removed. The door is open or patient has been rr5 placed in a hallway bed/chair. There are no family/friend visitors at this time. 05:45 Safety Checks: Personal items have been removed. The door is open or patient has been ak1 placed in a hallway bed/chair. A family member and/or friend is present and encouraged to stay. There are no family/friend visitors at this time Sitter present at this time. 05:45 Safety checks: Items removed: yes. Door open/sign placed on door: yes. Family/friend mw2 present: no. Sitter present: Yes. 06:00 Safety Checks: Personal items have been removed. The door is open or patient has been rr5 placed in a hallway bed/chair. There are no family/friend visitors at this time Sitter present at this time. 06:00 Safety Checks: Personal items have been removed. The door is open or patient has been ak1 placed in a hallway bed/chair. A family member and/or friend is present and encouraged to stay. There are no family/friend visitors at this time Sitter present at this time. 06:00 Safety checks: Items removed: yes. Door open/sign placed on door: yes. Family/friend mw2 present: no. Sitter present: Yes. 06:15 Safety Checks: Personal items have been removed. The door is open or patient has been rr5 placed in a hallway bed/chair. There are no family/friend visitors at this time Sitter present at this time. 06:15 Safety Checks: Personal items have been removed. The door is open or patient has been ak1 placed in a hallway bed/chair. A family member and/or friend is present and encouraged to stay. There are no family/friend visitors at this time Sitter present at this time. 06:15 Safety checks: Items removed: yes. Door open/sign placed on door: yes. Family/friend mw2 present: no. Sitter present: Yes. 06:30 Safety Checks: Personal items have been removed. The door is open or patient has been rr5 placed in a hallway bed/chair. There are no family/friend visitors at this time Sitter present at this time. 06:30 Safety Checks: Personal items have been removed. The door is open or patient has been ak1 placed in a hallway bed/chair. A family member and/or friend is present and encouraged to stay. There are no family/friend visitors at this time Sitter present at this time. 06:45 Safety Checks: Personal items have been removed. The door is open or patient has been rr5 placed in a hallway bed/chair. There are no family/friend visitors at this time Sitter present at this time. 06:45 Safety Checks: Personal items have been removed. The door is open or patient has been ak1 placed in a hallway bed/chair. A family member and/or friend is present and encouraged to stay. There are no family/friend visitors at this time Sitter present at this time. 07:00 Safety Checks: Personal items have been removed. The door is open or patient has been rr5 placed in a hallway bed/chair. There are no family/friend visitors at this time Sitter present at this time. 07:00 Safety Checks: Personal items have been removed. The door is open or patient has been ak1 placed in a hallway bed/chair. A family member and/or friend is present and encouraged to stay. There are no family/friend visitors at this time Sitter present at this time. 07:00 No provider procedures requiring assistance completed. aa5 07:15 Safety Checks: The door is open or patient has been placed in a hallway bed/chair. aa5 Items have not been removed Items remain on bedside table. There are no family/friend visitors at this time Sitter present at this time. 07:30 Safety Checks: The door is open or patient has been placed in a hallway bed/chair. aa5 There are no family/friend visitors at this time Sitter present at this time. 07:45 Safety Checks: Personal items have been removed. The door is open or patient has been aa5 placed in a hallway bed/chair. There are no family/friend visitors at this time Sitter present at this time. 08:00 Safety Checks: Personal items have been removed. The door is open or patient has been sg placed in a hallway bed/chair. A family member and/or friend is present and encouraged to stay. There are no family/friend visitors at this time Sitter present at this time. 08:15 Safety Checks: The door is open or patient has been placed in a hallway bed/chair. A sg family member and/or friend is present and encouraged to stay. There are no family/friend visitors at this time Sitter present at this time. 08:30 Safety Checks: Personal items have been removed. The door is open or patient has been aa5 placed in a hallway bed/chair. There are no family/friend visitors at this time. 08:45 Safety Checks: Personal items have been removed. The door is open or patient has been aa5 placed in a hallway bed/chair. A family member and/or friend is present and encouraged to stay. 09:00 Safety Checks: Personal items have been removed. The door is open or patient has been aa5 placed in a hallway bed/chair. A family member and/or friend is present and encouraged to stay. 09:15 Safety Checks: Personal items have been removed. The door is open or patient has been aa5 placed in a hallway bed/chair. A family member and/or friend is present and encouraged to stay. 09:30 Safety Checks: Personal items have been removed. The door is open or patient has been aa5 placed in a hallway bed/chair. A family member and/or friend is present and encouraged to stay. 09:45 Safety Checks: Personal items have been removed. The door is open or patient has been aa5 placed in a hallway bed/chair. A family member and/or friend is present and encouraged to stay. 09:54 Report received from Hilary. 09:55 Primary Nurse role handed off by Kenzie De La Rosa RN 09:55 Karina Denise RN is Primary Nurse. 09:56 Report given to Karina Denise RN. aa5 10:00 No apparent distress. Resting quietly. Safety Checks: Personal items have been removed. ch The door is open or patient has been placed in a hallway bed/chair. There are no family/friend visitors at this time Sitter present at this time. 10:00 Safety checks: Items removed: yes. Door open/sign placed on door: yes. Family/friend mh5 present: yes. Sitter present: Yes. 10:15 Safety checks: Items removed: yes. Door open/sign placed on door: yes. Family/friend mh5 present: yes. Sitter present: Yes. 10:20 IV discontinued, intact, bleeding controlled, No redness/swelling at site. 10:28 Safety checks: Items removed: Other: PATIENT BEING DISCHARGED WITH PARENT. 5 10:28 Patient did not have IV access during this emergency room visit. IV discontinued, mh5 Pressure dressing applied. Administered Medications: 01/09 19:03 Drug: NS 0.9% 1000 ml Route: IV; Rate: 1000 ml; Site: right antecubital; ss 21:28 Follow up: IV Status: Completed infusion; IV Intake: 1000ml ak1 01/10 00:57 Follow up: IV Status: Completed infusion ak1 01/09 19:04 Drug: Activated Charcoal Suspension (50 g/240 mL) 1 g/kg Route: PO; ss 23:11 Follow up: Response: No adverse reaction ak1 19:10 Drug: Phenergan 6.25 mg Route: IVP; Site: right antecubital; hj 23:11 Follow up: Response: No adverse reaction ak1 21:00 Drug: Phenergan 6.25 mg Route: IVP; Site: left antecubital; ak1 23:11 Follow up: Response: No adverse reaction ak1 01/10 07:40 Drug: K-Lyte Effervescent Tablet 25 mEq Route: PO; aa5 10:00 Follow up: Response: No adverse reaction ch Intake: 01/09 21:28 IV: 1000ml; Total: 1000ml. ak1 Outcome: 01/10 10:09 Discharge ordered by . [facility] 10:30 Discharged to home ambulatory, with family. 10:30 Condition: improved 10:30 Discharge instructions given to patient, family, Instructed on discharge instructions, follow up and referral plans. Demonstrated understanding of instructions, follow-up care. 10:34 Patient left the ED. Signatures: Karina Denise, RN VONDA Cain Ma RN RN sg Anderson, Corey, MD MD cha Rivera, Mary mr Christiane Marquis RN RN Hilary Frey RN RN 5 Letty Jackson RN RN Denilson Bautista PA PA jr8 Swanson, Donovan ds4 Kenzie De La Rosa RN RN il1 Sawyer Schwartz RN RN hj Martinez, Maria [facility] [place] Zay Macias RN RN bp [place], MyAna Lilia mw2 Fco Precious dd Jl Rincon RN RN rr5 Bill Montalvo ag4 Camila Disla ar5 Hayley Dhillon em4 Corrections: (The following items were deleted from the chart) 01/09 19:33 19:29 Safety checks: Items removed: yes. Door open/sign placed on door: Patient placed ag4 in hallway bed. yes. Family/friend present: no. Sitter present: Yes. ag4 20:40 20:39 Safety checks: Items removed: yes. Door open/sign placed on door: Patient placed ag4 in hallway bed. yes. Family/friend present: no. Sitter present: Yes. ag4 20:42 20:34 Safety checks: Items removed: yes. Door open/sign placed on door: Patient placed ag4 in hallway bed. yes. Family/friend present: no. Sitter present: Yes. ag4 01/10 00:36 00:30 Safety Checks: Personal items have been removed. The door is open or patient has dd been placed in a hallway bed/chair. A family member and/or friend is present and encouraged to stay. There are no family/friend visitors at this time dd 01:35 01:20 Safety Checks: Personal items have been removed. The door is open or patient has dd been placed in a hallway bed/chair. There are no family/friend visitors at this time Sitter present at this time. dd 01:36 01/09 22:18 Safety Checks: Personal items have been removed. The door is open or dd patient has been placed in a hallway bed/chair. There are no family/friend visitors at this time Sitter present at this time. Pt resting in bed with eyes closed. dd 01/10 02:17 02:15 Assisted to bathroom. Pt ambulated to the bathroom, Steady gait. BM x1/ dd dd 02:20 02:19 Assisted to bathroom. Pt ambulated to bathroom. Steady gait. BM x1. dd dd 02:37 02:30 court recording monitor on. Pulse ox on. Sitter at bedside. Cardiac monitoring not em4 applicable on this patient. em4 03:01 02:58 Safety checks: Items removed: yes. Door open/sign placed on door: yes. em4 Family/friend present: no. Sitter present: Yes. em4 07:18 07:00 BP 88 / 66; Pulse 62bpm; Resp 14bpm; Pulse Ox 98%; bp aa5 08:31 07:45 Reassessment: Pt easy to awaken to verbal stimuli. Notified pt belongings have to aa5 be taken away outside her room for psych precautions. Pt began to cry and states "you are ruining my life and I still want to call my mom to talk to her because she helps keep me calm". Notified pt that she can call her mom using the ER's phone. Told pt to call her mom using her cell phone at this time to notify her that her belongings will be taken away at this time. Pt upset, states "my mom says you are not touching any of my stuff until she gets here". Notified pt her belongings may be released to her mom per her request. Pt's belongings with pt's sitter at this time awaiting to be picked up by pt's mother. Pt sitting up in bed awaiting breakfast tray at this time. . aa5 08:53 07:15 BP 92 / 73; Pulse 74bpm; Resp 16bpm; Spontaneous; Pulse Ox 97% RA; aa5 aa5 09:03 08:45 BP 95 / 51; Pulse 80bpm; Resp 18bpm; Spontaneous; Pulse Ox 99% RA; aa5 aa5
--- NOTE | 2019-01-10 10:10 | EDPHYS ---
Physician Documentation [facility] Name: Yaneth Gonzalez Age: 23 yrs Sex: Female : 1995 Arrival Date: 01/09/2019 Time: 18:40 Bed 4 Private MD: ED Physician Yan Corado HPI: 01/09 20:15 This 23 yrs old Female presents to ER via Ambulatory with complaints of jr8 Overdose, Suicidal Ideation. 20:15 The patient presents to the emergency department after a known overdose, that was jr8 intentional. Context: Method: the patient has a confirmed or suspected ingestion, Flexeril , Time: at 18:20, Extent: the strength of the pills/capsules is 10 mg(s), the patient had a total ingestion of approximately 150 mg(s), the OD/poisoning occurred at at home, Psychiatric history: the patient has a known psychiatric disorder, depression, Previous OD/poisoning history: none. Associated signs and symptoms: Pertinent positives: shortness of breath, tearfulness, chest pain. Severity of symptoms: At their worst the symptoms were moderate in the emergency department the symptoms are unchanged. The patient has not experienced similar symptoms in the past. The patient has not recently seen a physician. Patient with history of depression. Has been off of her zoloft for about 3 months. Feeling worse throughout that time. Told her she was depressed today and then after leaving had texted her saying he was leaving and could not deal with her depression. Stated that she acutely became worse and took 15, 10 mg Flexeril in attempt to kill herself. Drove herself over here after realizing what she did. Historical: - Allergies: 18:47 No Known Allergies; hj - Home Meds: 18:47 None [Active]; hj - PMHx: 18:47 Ovarian cyst; polycystic ovary disease; hj - PSHx: 18:47 ovarian cyst removed.; hj - Immunization history:: Adult Immunizations up to date. - Social history:: Smoking status: Patient/guardian denies using tobacco, Patient/guardian denies using alcohol. - Ebola Screening: : Patient negative for fever greater than or equal to 101.5 degrees Fahrenheit, and additional compatible Ebola Virus Disease symptoms Patient denies exposure to infectious person Patient denies travel to an Ebola-affected area in the 21 days before illness onset. ROS: 20:15 Eyes: Negative for injury, pain, redness, and discharge, ENT: Negative for injury, jr8 pain, and discharge, Neck: Negative for injury, pain, and swelling, Abdomen/GI: Negative for abdominal pain, nausea, vomiting, diarrhea, and constipation, Back: Negative for injury and pain, MS/Extremity: Negative for injury and deformity, Skin: Negative for injury, rash, and discoloration, Neuro: Negative for headache, weakness, numbness, tingling, and seizure. 20:15 Cardiovascular: Positive for chest pain, Negative for edema, orthopnea, palpitations, paroxysmal nocturnal dyspnea. 20:15 Respiratory: Positive for shortness of breath. 20:15 Psych: Positive for depression, suicide gesture, suicidal ideation. Exam: 20:15 Eyes: Pupils equal round and reactive to light, extra-ocular motions intact. Lids and jr8 lashes normal. Conjunctiva and sclera are non-icteric and not injected. Cornea within normal limits. Periorbital areas with no swelling, redness, or edema. ENT: Nares patent. No nasal discharge, no septal abnormalities noted. Tympanic membranes are normal and external auditory canals are clear. Oropharynx with no redness, swelling, or masses, exudates, or evidence of obstruction, uvula midline. Mucous membranes moist. Neck: Trachea midline, no thyromegaly or masses palpated, and no cervical lymphadenopathy. Supple, full range of motion without nuchal rigidity, or vertebral point tenderness. No Meningismus. Cardiovascular: Regular rate and rhythm with a normal S1 and S2. No gallops, murmurs, or rubs. Normal PMI, no JVD. No pulse deficits. Respiratory: Lungs have equal breath sounds bilaterally, clear to auscultation and percussion. No rales, rhonchi or wheezes noted. No increased work of breathing, no retractions or nasal flaring. Abdomen/GI: Soft, non-tender, with normal bowel sounds. No distension or tympany. No guarding or rebound. No evidence of tenderness throughout. Back: No spinal tenderness. No costovertebral tenderness. Full range of motion. Skin: Warm, dry with normal turgor. Normal color with no rashes, no lesions, and no evidence of cellulitis. MS/ Extremity: Pulses equal, no cyanosis. Neurovascular intact. Full, normal range of motion. Neuro: Awake and alert, GCS 15, oriented to person, place, time, and situation. Cranial nerves II-XII grossly intact. Motor strength 5/5 in all extremities. Sensory grossly intact. Cerebellar exam normal. Normal gait. 20:15 Psych: Behavior/mood is cooperative, suicidal, depressed, Affect is calm, Oriented to person, place, time, Patient having thoughts of suicide. Plan for suicide is see HPI Judgement / Insight is normal. Memory is normal. Delusions/hallucinations are not present. Vital Signs: 18:48 BP 136 / 91; Pulse 79; Resp 18; Temp 99.0(TE); Pulse Ox 98% on R/A; Weight 74.84 kg; hj Height 5 ft. 4 in. (162.56 cm); 20:43 Temp 98(T); ag4 21:50 BP 124 / 84; Pulse 70; Resp 14; Pulse Ox 99% on R/A; Pain 0/10; ak1 23:06 BP 96 / 59; Pulse 83; Resp 17; Pulse Ox 95% on R/A; dd 23:06 Pain 0/10; dd 03/25 00:07 BP 106 / 70; Pulse 70; Resp 12; Pulse Ox 95% on R/A; Pain 0/10; dd 01:08 BP 112 / 73; Pulse 74; Resp 17; Pulse Ox 96% on R/A; dd 02:04 BP 114 / 74; Pulse 65; Resp 16; Pulse Ox 99% on R/A; dd 03:02 BP 102 / 69; Pulse 80; Resp 12; Pulse Ox 97% on R/A; em4 03:46 BP 102 / 69; Pulse 80; Resp 11; Pulse Ox 98% on R/A; em4 04:17 BP 98 / 61; Pulse 73; Resp 12; Pulse Ox 95% on R/A; em4 04:50 BP 100 / 61; Pulse 64; Resp 16; Temp 98.4; Pulse Ox 100% on R/A; mw2 07:15 BP 92 / 73; Pulse 74; Resp 16 S; Temp 98.3(O); Pulse Ox 97% on R/A; Pain 0/10; aa5 08:45 BP 116 / 71; Pulse 74; Resp 18 S; Pulse Ox 99% on R/A; aa5 10:18 BP 124 / 83; Pulse 78; Resp 16; Temp 98.0(O); Pulse Ox 99% on R/A; mh5 01/09 18:48 Body Mass Index 28.32 (74.84 kg, 162.56 cm) hj MDM: 01/09 18:48 Patient medically screened. [facility] 01/10 01:14 Data reviewed: vital signs, nurses notes, lab test result(s), EKG. Data interpreted: [facility] Pulse oximetry: on room air is 96 %. Interpretation: normal. Counseling: I had a detailed discussion with the patient and/or guardian regarding: the historical points, exam findings, and any diagnostic results supporting the discharge/admit diagnosis, lab results, the need to transfer to another facility, [facility] does not immediately have the required specialist. ED course: No change in EKG. No QT prolongation. Patient without any CP, SOB, dizziness, or AMS. VS stable. Medically cleared for psych evaluation at this point as it has been over 6 hours without any acute or concerning change . 03:20 Transition of care: After a detail discussion of the patient's case, care is [facility] transferred to Robert Timmons MD. 01/09 18:49 Order name: Acetaminophen; Complete Time: 20:12 [facility] 01/09 18:49 Order name: Basic Metabolic Panel; Complete Time: 20:12 [facility] 01/09 18:49 Order name: CBC with Diff; Complete Time: 19:51 [facility] 01/09 18:49 Order name: ETOH Level; Complete Time: 20:12 [facility] 01/09 18:49 Order name: Hepatic Function; Complete Time: 20:12 [facility] 01/09 18:49 Order name: PT-INR; Complete Time: 20:02 [facility] 01/09 18:49 Order name: Ptt, Activated; Complete Time: 20:02 [facility] 01/09 18:49 Order name: Salicylate; Complete Time: 20:12 [facility] 01/09 18:49 Order name: Urine Drug Screen; Complete Time: 21:58 [facility] 01/09 21:31 Order name: Urine Dipstick--Ancillary (enter results) [facility] 01/09 21:31 Order name: Urine --Ancillary (enter results) [facility] 01/09 21:31 Order name: Urine Dipstick-Ancillary; Complete Time: 21:58 [facility] 01/09 21:32 Order name: Urine --Ancillary; Complete Time: 21:58 [facility] 01/09 18:49 Order name: Urine Test (obtain specimen); Complete Time: 21:28 [facility] 01/09 18:49 Order name: EKG; Complete Time: 18:50 [facility] 01/09 18:49 Order name: EKG - Nurse/Tech; Complete Time: 18:49 [facility] 01/09 18:49 Order name: IV Saline Lock; Complete Time: 18:49 [facility] 01/09 18:49 Order name: Labs collected and sent; Complete Time: 19:38 [facility] 01/09 18:49 Order name: Urine Dipstick-Ancillary (obtain specimen); Complete Time: 21:28 [facility] 01/10 00:54 Order name: EKG - Nurse/Tech; Complete Time: 02:04 [facility] 01/10 06:13 Order name: Diet Regular; Complete Time: 06:14 [facility] 01/10 07:36 Order name: Diet Regular; Complete Time: 07:36 [facility] 01/10 08:09 Order name: EKG Electrocardiogram EDDE Administered Medications: 01/09 19:03 Drug: NS 0.9% 1000 ml Route: IV; Rate: 1000 ml; Site: right antecubital; ss 21:28 Follow up: IV Status: Completed infusion; IV Intake: 1000ml [facility] 01/10 00:57 Follow up: IV Status: Completed infusion [facility] 01/09 19:04 Drug: Activated Charcoal Suspension (50 g/240 mL) 1 g/kg Route: PO; ss 23:11 Follow up: Response: No adverse reaction [facility] 19:10 Drug: Phenergan 6.25 mg Route: IVP; Site: right antecubital; hj 23:11 Follow up: Response: No adverse reaction [facility] 21:00 Drug: Phenergan 6.25 mg Route: IVP; Site: left antecubital; ak1 23:11 Follow up: Response: No adverse reaction [facility] 01/10 07:40 Drug: K-Lyte Effervescent Tablet 25 mEq Route: PO; aa5 10:00 Follow up: Response: No adverse reaction ch Disposition: 12:55 Co-signature as Attending Physician, Yan Corado MD I agree with the assessment and mikael plan of care. Disposition: 01/10/19 10:09 Discharged to Home. Impression: Suicidal ideations, Suicide attempt. - Condition is Stable. - Discharge Instructions: Suicidal Feelings: How to Help Yourself, Helping Someone Who is Suicidal, Stress and Stress Management, Major Depressive Disorder, [id number], Major Depressive Disorder. - Work release form, Medication Reconciliation Form, Thank You Letter, Antibiotic Education, Prescription Opioid Use form. - Follow up: Private Physician; When: 2 - 3 days; Reason: Recheck today's complaints, Continuance of care, Re-evaluation by your physician. - Problem is new. - Symptoms have improved. Signatures: Dispatcher [employer] EDMS Yan Corado MD MD cha Williams, Irene RN RN iw Hilary Frey RN RN aa5 Letty Jackson RN RN ss Denilson Bautista PA PA jr8 Kenzie De La Rosa RN RN ak1 Sawyer Schwartz RN VONDA Karina Denise RN Corrections: (The following items were deleted from the chart) 10:34 10:09 01/10/2019 10:09 Discharged to Home. Impression: Suicidal ideations; Suicide iw attempt. Condition is Stable. Forms are Medication Reconciliation Form, Thank You Letter, Antibiotic Education, Prescription Opioid Use. Follow up: Private Physician; When: 2 - 3 days; Reason: Recheck today's complaints, Continuance of care, Re-evaluation by your physician. Problem is new. Symptoms have improved. mikael
== END 2019-01-10 10:34 | disposition home or self-care (01) ==
LOC: ER 18:40
DX: T14.91XA Suicide attempt, initial encounter (principal)
CPT/HCPCS: 36415; 80048; 80076; 80307; 80320; 80329; 81003; 81025; 85025; 85610; 85730; 93005; 99284; J2550; J7030

== ENCOUNTER 2020-07-25 16:56 | Emergency (ER) | payer OTHER ==
[2020-07-25 17:51] LABS: Absolute Lymphocytes (CBC) 1.7 K/uL (0.7-4.9); Basophils % 0.5 % (0-1.3); Hematocrit 40.9 % (36.0-45.0); Lymphocytes % 21.5 % (15.3-44.8); MPV 10.6 fL (7.6-11.3); RBC Red Blood Cell Count 4.52 M/uL (3.86-4.86)
[2020-07-25] MEDS ORDERED: MEPERIDINE HCL 50 MG/ML ONE (18:05)
[2020-07-25] MEDS ORDERED: ONDANSETRON 4 MG/2 ML VIAL ONE (18:05)
[2020-07-25 18:10] LABS: ALT/SGPT 23 U/L (12-78); AST/SGOT 15 U/L (15-37); Albumin 3.9 g/dL (3.4-5.0); Alkaline Phosphatase 96 U/L (45-117); BUN Blood Urea Nitrogen 13 mg/dL (7-18); Bicarbonate 29 mmol/L (21-32); Bilirubin Direct < 0.1 mg/dL (0-0.2); Bilirubin Total 0.3 mg/dL (0.2-1.0); Glucose Level 103 mg/dL (74-106); Lipase 111 U/L (73-393); Potassium 3.7 mmol/L (3.5-5.1); Protein, Total 7.8 g/dL (6.4-8.2); Sodium Level 140 mmol/L (136-145)
[2020-07-25 18:17] LABS: Urine Bacteria <20 /HPF (<20); Urine Culture Reflex Order NOT NEEDED; Urine RBC <5 /HPF (NONE SEEN)
--- NOTE | 2020-07-25 18:38 | RAD REPORT ---
EXAM DESCRIPTION: CTAbdomen Pelvis W Contrast - 07/25/2020 6:14 pm CLINICAL HISTORY: Abdominal pain. ABD PAIN COMPARISON: Abdomen Pelvis W Contrast dated 12/21/2018; Pelvis Complete dated 07/25/2020 TECHNIQUE: Biphasic CT imaging of the abdomen and pelvis was performed with 100 ml non-ionic IV cont rast. All CT scans are performed using dose optimization technique as appropriate and may include automated exposure control or mA/KV adjustment according to patient size. FINDINGS: The lung bases are clear. The liver, spleen, pancreas, adrenal glands and kidneys are within normal limits. No bowel obstruction, free air, free fluid or abscess. The appendix is normal. No evidence of signi ficant lymphadenopathy. No suspicious bony findings. Trace pelvic free fluid. IMPRESSION: No acute intra-abdominal or pelvic finding.
[2020-07-25 18:42] LABS: Urine Blood NEGATIVE (NEG); Urine Glucose NEGATIVE (NEG); Urine Protein NEGATIVE (NEG)
--- NOTE | 2020-07-25 18:42 | RAD REPORT ---
EXAM DESCRIPTION: US - Pelvis Complete - 07/25/2020 6:35 pm CLINICAL HISTORY: rule out torsion Pelvic pain. COMPARISON: No comparisons FINDINGS: The uterus is normal in size, shape and echotexture. The uterus measures 8.7 x 6.8 x 4.4 c m. The endometrial stripe measures 11 mm, normal. Both ovaries are normal in size, shape and echotexture. The right ovary measures 2.6 x 2.4 x 2.2 cm. The left ovary measures 2.6 x 2.0 x 2.0 cm. No ovarian or parovarian lesions. No adnexal masses. Normal Doppler blood flow was demonstrated to both ovaries. No significant pelvic ascites. IMPRESSION: Unremarkable study.
--- NOTE | 2020-07-25 19:01 | EDPHYS ---
Physician Documentation [facility] Name: Yaneth Wang Age: 24 yrs Sex: Female : 1995 Arrival Date: 07/25/2020 Time: 16:59 Bed 5 Private MD: ED Physician Sky Che HPI: 07/25 17:26 This 24 yrs old Female presents to ER via Ambulatory with complaints of rn Abdominal Pain, Pelvic Pain. 17:26 The patient presents with abdominal pain in the upper abdomen, in the lower abdomen. rn 17:27 Onset: The symptoms/episode began/occurred 3 day(s) ago. The symptoms do not radiate. rn Associated signs and symptoms: Pertinent positives: diarrhea, Pertinent negatives: blood in stools, fever, headache, vaginal discharge, vomiting, vomiting blood. The symptoms are described as achy, crampy. Modifying factors: The symptoms are alleviated by nothing, the symptoms are aggravated by movement, touching the area. Severity of pain: At its worst the pain was moderate in the emergency department the pain is unchanged. The patient has not experienced similar symptoms in the past. Reports upper and lower abd pain for 3 days, + non-bloody diarrhea, no fever, no vaginal discharge or bleeding. feels different than time she had ovarian cyst and torsion. . 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 - Social history:: Smoking status: Reported history of juuling and/or vaping. - Family history:: not pertinent. - Hospitalizations: : No recent hospitalization is reported. ROS: 17:27 Constitutional: Negative for fever, chills, and weight loss, Eyes: Negative for injury, rn pain, redness, and discharge, Cardiovascular: Negative for chest pain, palpitations, and edema, Respiratory: Negative for shortness of breath, cough, wheezing, and pleuritic chest pain, Abdomen/GI: + abd pain/diarrhea/nausea Back: Negative for injury and pain, : Negative for injury, bleeding, discharge, and swelling, MS/Extremity: Negative for injury and deformity, Skin: Negative for injury, rash, and discoloration, Neuro: Negative for headache, weakness, numbness, tingling, and seizure. Exam: 17:27 Constitutional: This is a well developed, well nourished patient who is awake, alert, rn and in no acute distress. Ambulatory to bathroom and room. Head/Face: Normocephalic, atraumatic. Cardiovascular: Regular rate and rhythm. No pulse deficits. Respiratory: No increased work of breathing, no retractions or nasal flaring. Abdomen/GI: soft, mild tenderness all 4 quadrants. Skin: Warm, dry with normal turgor. Normal color with no rashes, no lesions, and no evidence of cellulitis. MS/ Extremity: Pulses equal, no cyanosis. Neurovascular intact. Full, normal range of motion. Equal circumference. Neuro: Awake and alert, GCS 15, oriented to person, place, time, and situation. Cranial nerves II-XII grossly intact. Motor strength 5/5 in all extremities. Sensory grossly intact. Cerebellar exam normal. Normal gait. Vital Signs: 17:11 BP 127 / 79; Pulse 91; Resp 18 S; Temp 98.1(TE); Pulse Ox 99% on R/A; Weight 82.1 kg ca1 (R); Height 5 ft. 3 in. (160.02 cm) (R); Pain 8/10; 18:30 BP 135 / 80; Pulse 85; Resp 16 S; Pulse Ox 99% on R/A; aa5 17:11 Body Mass Index 32.06 (82.10 kg, 160.02 cm) ca1 MDM: 17:18 Patient medically screened. rn 18:41 Differential diagnosis: appendicitis, Endometriosis, non-specific abd pain, Ovarian rn Torsion, Ureterolithiasis, urinary tract infection. Data reviewed: vital signs, nurses notes, lab test result(s), radiologic studies, CT scan, ultrasound, and as a result, I will discharge patient. Counseling: I had a detailed discussion with the patient and/or guardian regarding: the historical points, exam findings, and any diagnostic results supporting the discharge/admit diagnosis, lab results, radiology results, the need for outpatient follow up, to return to the emergency department if symptoms worsen or persist or if there are any questions or concerns that arise at home. Response to treatment: the patient's symptoms have markedly improved after treatment, and as a result, I will discharge patient. Special discussion: Based on the patient's Hx, exam, and Dx evaluation, there is no indication for emergent surgery or inpatient Tx. It is understood by the patient/guardian that if the Sx's persist or worsen they need to return immediately for re-evaluation. I discussed with the patient/guardian in detail that at this point there is no indication for admission to the hospital. It is understood, however, that if the symptoms persist or worsen the patient needs to return immediately for re-evaluation. ED course: No acute findings in ct abdomen/ultrasound pelvis/bloodwork/urine, will dc home with return precautions. . 07/25 17:26 Order name: Basic Metabolic Panel; Complete Time: 18:40 rn 07/25 17:26 Order name: CBC with Diff; Complete Time: 18:10 rn 07/25 17:26 Order name: Hepatic Function; Complete Time: 18:40 rn 07/25 17:26 Order name: Lipase; Complete Time: 18:40 rn 07/25 17:26 Order name: Urine Microscopic Only; Complete Time: 18:40 rn 07/25 17:59 Order name: Urine Dipstick--Ancillary (enter results); Complete Time: 18:55 bd 07/25 17:26 Order name: IV Saline Lock; Complete Time: 18:05 rn 07/25 17:26 Order name: Labs collected and sent; Complete Time: 18:05 rn 07/25 17:26 Order name: CT Abd/Pelvis - IV Contrast Only; Complete Time: 18:55 rn 07/25 17:26 Order name: US Pelvis Complete; Complete Time: 18:55 rn 07/25 17:26 Order name: Urine Test (obtain specimen); Complete Time: 18:05 rn 07/25 17:59 Order name: Urine --Ancillary (enter results); Complete Time: 18:55 bd 07/25 17:26 Order name: Urine Dipstick-Ancillary (obtain specimen); Complete Time: 18:05 rn Administered Medications: 18:00 Drug: Demerol 25 mg Route: IVP; Site: right antecubital; aa5 18:05 Follow up: Response: No adverse reaction aa5 18:00 Drug: Zofran (Ondansetron) 4 mg Route: IVP; Site: right antecubital; aa5 18:05 Follow up: Response: No adverse reaction aa5 Disposition: 07/25/20 19:00 Discharged to Home. Impression: Unspecified abdominal pain. - Condition is Stable. - Discharge Instructions: Abdominal Pain, Adult, Pain Without a Known Cause. - Medication Reconciliation Form, Thank You Letter, Antibiotic Education, Prescription Opioid Use form. - Follow up: Private Physician; When: As needed; Reason: Recheck today's complaints, Re-evaluation by your physician. - Problem is new. - Symptoms have improved. Signatures: Dispatcher [employer] EDMS Sky Che MD MD rn Calderon, Audri, RN RN aa5 Dorita Seals RN RN ca1 Corrections: (The following items were deleted from the chart) 19:15 19:00 07/25/2020 19:00 Discharged to Home. Impression: Unspecified abdominal pain. aa5 Condition is Stable. Discharge Instructions: Abdominal Pain, Adult, Pain Without a Known Cause. Forms are Medication Reconciliation Form, Thank You Letter, Antibiotic Education, Prescription Opioid Use. Follow up: Private Physician; When: As needed; Reason: Recheck today's complaints, Re-evaluation by your physician. Problem is new. Symptoms have improved. rn
--- NOTE | 2020-07-25 19:01 | ER ---
Nurse's Notes [facility] Name: Yaneth Wang Age: 24 yrs Sex: Female : 1995 Arrival Date: 07/25/2020 Time: 16:59 Bed 5 Private MD: Diagnosis: Unspecified abdominal pain Presentation: 07/25 17:11 Chief complaint: Patient states: Diffuse abdominal pain and pelvic pain x 3 days, ca1 intermittent, non-radiating. HX of PCOS. Reports nausea. Denies vomiting and diarrhea. Denies fever. Denies urinary symptoms. Coronavirus screen: Client denies travel out of the [place] in the last 14 days. nausea, Client presents with at least one sign or symptom that may indicate coronavirus-19. Standard/surgical mask placed on the client. Provider contacted for isolation considerations. The client reports previous COVID testing was negative. Date of collection: March 2020. Ebola Screen: Patient negative for fever greater than or equal to 101.5 degrees Fahrenheit, and additional compatible Ebola Virus Disease symptoms Patient denies exposure to infectious person. Patient denies travel to an Ebola-affected area in the 21 days before illness onset. No symptoms or risks identified at this time. Initial Sepsis Screen: Does the patient meet any 2 criteria? No. Patient's initial sepsis screen is negative. Does the patient have a suspected source of infection? No. Patient's initial sepsis screen is negative. Risk Assessment: Do you want to hurt yourself or someone else? Patient reports no desire to harm self or others. Onset of symptoms was July 25, 2020. 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 - Social history:: Smoking status: Reported history of juuling and/or vaping. - Family history:: not pertinent. - Hospitalizations: : No recent hospitalization is reported. Screenin:45 Abuse screen: Denies threats or abuse. Nutritional screening: No deficits noted. aa5 Tuberculosis screening: No symptoms or risk factors identified. Fall Risk None identified. Assessment: 17:35 General: Appears comfortable, Behavior is calm, cooperative. Pain: Complains of pain in aa5 right upper quadrant, left upper quadrant, right lower quadrant and left lower quadrant Pain does not radiate. Pain currently is 8 out of 10 on a pain scale. Is intermittent. Neuro: Level of Consciousness is awake, alert, obeys commands, Oriented to person, place, time, situation. Cardiovascular: Heart tones S1 S2 present Rhythm is regular. Respiratory: Airway is patent Respiratory effort is even, unlabored, Respiratory pattern is regular, symmetrical. GI: Abdomen is round non-distended, Bowel sounds present X 4 quads. Abd is soft and non tender X 4 quads. Reports nausea, Patient currently denies diarrhea, vomiting. : No signs and/or symptoms were reported regarding the genitourinary system. EENT: No signs and/or symptoms were reported regarding the EENT system. Derm: Skin is pink, warm \T\ dry. Musculoskeletal: Range of motion: intact in all extremities. 18:10 Reassessment: Pt to radiology via wheelchair. . aa5 18:19 Reassessment: Patient is alert, oriented x 3, equal unlabored respirations, skin aa5 warm/dry/pink. Pt back from radiology . General: Appears comfortable. 18:30 Reassessment: Patient is alert, oriented x 3, equal unlabored respirations, skin aa5 warm/dry/pink. Patient states feeling better. Patient states symptoms have improved. 19:10 Reassessment: Patient is alert, oriented x 3, equal unlabored respirations, skin aa5 warm/dry/pink. Vital Signs: 17:11 BP 127 / 79; Pulse 91; Resp 18 S; Temp 98.1(TE); Pulse Ox 99% on R/A; Weight 82.1 kg ca1 (R); Height 5 ft. 3 in. (160.02 cm) (R); Pain 8/10; 18:30 BP 135 / 80; Pulse 85; Resp 16 S; Pulse Ox 99% on R/A; aa5 17:11 Body Mass Index 32.06 (82.10 kg, 160.02 cm) ca1 ED Course: 16:59 Patient arrived in ED. as 17:14 Triage completed. ca1 17:14 Arm band placed on right wrist. ca1 17:15 Hilary Frey, RN is Primary Nurse. aa5 17:18 Sky Che MD is Attending Physician. rn 17:35 Patient has correct armband on for positive identification. Placed in gown. Bed in low aa5 position. Call light in reach. Side rails up X2. Pulse ox on. NIBP on. 17:45 Initial lab(s) drawn, by me, sent to lab. Inserted saline lock: 20 gauge in right aa5 antecubital area, using aseptic technique. Blood collected. 18:14 CT Abd/Pelvis - IV Contrast Only In Process Unspecified. EDMS 18:35 US Pelvis Complete In Process Unspecified. EDMS 19:10 No provider procedures requiring assistance completed. IV discontinued, intact, aa5 bleeding controlled, No redness/swelling at site. Pressure dressing applied. Administered Medications: 18:00 Drug: Demerol 25 mg Route: IVP; Site: right antecubital; aa5 18:05 Follow up: Response: No adverse reaction aa5 18:00 Drug: Zofran (Ondansetron) 4 mg Route: IVP; Site: right antecubital; aa5 18:05 Follow up: Response: No adverse reaction aa5 Outcome: 19:00 Discharge ordered by . rn 19:10 Discharged to home ambulatory, with significant other. aa5 19:10 Condition: stable 19:10 Discharge instructions given to patient, Instructed on discharge instructions, follow up and referral plans. Demonstrated understanding of instructions, follow-up care. 19:15 Patient left the ED. aa5 Signatures: Dispatcher [employer] Cristel Pina as Sky Che MD MD rn Calderon, Audri, RN RN aa5 Dorita Seals RN RN ca1
[2020-07-25 19:27] VITALS: BP 127/79; TEMP 98.1; O2SAT 99
--- OUTSIDE RECORDS SUMMARY | 2020-07-26 22:11 | XMS REPORT | Continuity of Care Document ---
:1995 Author Organization [facility] t Address [address] [place] [address] Care Team Providers Name Role Phone Ninfa WALSH Attending Clinician Doctor Unassigned, Name Attending Clinician Unavailable Problems This patient has no known problems. Allergies, Adverse Reactions, Alerts This patient has no known allergies or adverse reactions. Medications This patient has no known medications. Procedures This patient has no known procedures. Encounters Start End Encounter Admission Attending Care Care Encounter Source Date/Time Date/Time Type Type Clinicians Facility Department ID 2020-05-29 2020-05-29 Telephone EZEQUIEL Ocasio [id number] 00:00:00 00:00:00 Montse Rosario [id number] [place] [id number] Rachel [id number] [address] 2020-05-21 2020-05-21 Office Ninfa MDROBYN [id number] 12:50:11 13:30:31 Visit Montse Rosario [id number] [place] [id number] Rachel [id number] [address] 2020-05-21 2020-05-21 Orders Doctor NOVA [id number] 00:00:00 00:00:00 Only UnassignedHAWK [id number] [place] [id number] [id number] Results This patient has no known results.
--- OUTSIDE RECORDS SUMMARY | 2020-07-26 22:12 | XMS REPORT | Summary of Care ---
:1995 Author Organization [facility] Address [address] [place] [address] Care Team Providers Name Role Phone Pcp, Does Not Have A Primary Care Provider Reason for Referral Radiology Services (Routine) Status Reason Specialty Diagnoses / Referred By Referred To Procedures Contact Contact New Request Diagnostic Diagnoses Abdominal pain, left lower quadrant Vaginal pain Vanaphan, Radiology Procedures US PELVIS COMPLETE WITH TRANSVAGINAL JILLIAN Willard [address] [place] [phone] Reason for Visit Reason Comments Vaginal Discharge VAGINAL PAIN Encounter Details Date Type Department Care Team Description 05/21/2020 Office Visit [facility] Women's Montse Ocasio Vagi nal discharge (Primary Dx); [facility] JILLIAN Abdominal pain, left lower quadrant; [address] [place] [address] [place] [phone] [place], [place] [phone] Allergies Active Allergy Reactions Severity Noted Date Comments Codeine Itching 10/17/2016 documented as of this encounter (statuses as of 05/21/2020) Medications Medication Sig Dispensed Refills Start Date End Date Status FLUoxetine 10 mg Take 1 capsule by 30 capsule 1 02/27/2020 Active capsuleIndications: mouth daily. depression documented as of this encounter (statuses as of 05/21/2020) Active Problems Problem Noted Date Routine follow-up 02/27/2020 depression 02/27/2020 History of anxiety 12/14/2019 History of depression 12/14/2019 documented as of this encounter (statuses as of 05/21/2020) Resolved Problems Problem Noted Date Resolved Date perineal pain 02/15/2020 02/27/2020 Single liveborn , delivered vaginally 01/28/2020 02/27/2020 care and examination immediately after delivery 0 01/28/2020 02/15/2020 Vacuum-assisted delivery, delivered, current 201902/27/2020 hospitalization Encounter for elective induction of labor 01/26/2020 02/15/2020 39 weeks gestation of 01/26/2020 02/15/20 20 Excessive weight gain during in third trimester 02/15/2020 Abnormal maternal glucose tolerance, antepartum 11/15/2019 02/15/2020 Last Assessment & Plan: Normal 3 hr gtt High-risk in third trimester 11/15/2019 0 02/15/2020 Need for Tdap vaccination 11/15/2019 01/16/2020 Vaginal spotting 11/15/2019 12/14/2019 32 weeks gestation of 10/09/2019 12/27/19 20 Obesity (BMI 30-39.9) 09/19/2019 10/09/2019 Well woman exam with routine gynecological exam 08/18/2016 10/09/2019 On Depo-Provera for contraception 08/18/20162018 Screen for sexually transmitted diseases 08/18/2016 10/09/2019 documented as of this encounter (statuses as of 05/21/2020) Immunizations Name Administration Dates Next Due DPT/HIB 03/07/1998, 01[birth year]02/[birth year] DTAP 08/15/2004, 12/11/1998, 03/07/1998 HEPATITIS A 03/27/2014, 03/16/2012 HPV 06/06/2010, 12/13/2009, 10/08/2009 Heamophilus Influenza B 12/08/1998 Hep B, Adol or Pedi Dosage 09/04/1998, 1995, 7 IPV 08/15/2004 Influenza Virus Vaccine Nasal 09/08/2012 Influenza Virus Vaccine Quad .5 mL IM 07/25/2019 6+ MO MMR 01/28/2020, 08/15/2004, 09/04/1998 Meningococcal Polysaccharide (groups A, 03/27/2014, 10/08/20 09 C, Y and W-135) conjugate vaccine (MCV4P) Polio (IPV/OPV) 12/11/1998, 01/02/1998, 1995 TDAP 10/08/2009 TDAP (ADACEL) VACCINE 11/15/2019 11/15/2028 Varicella (varivax)(chicken pox) 01/28/2020, 09/18/1998, documented as of this encounter Social History Tobacco Use Types Packs/Day Years Used Date Never Smoker Smokeless Tobacco: Never Used Alcohol Use Drinks/Week oz/Week Comments Yes 0 Standard drinks or equivalent 0.0 ocassionaly Sex Assigned at Date Recorded Not on file COVID-19 Exposure Response Date Recorded In the last month, have you been in contact with No / Unsure 05/21/2020 12:49 PM CDT someone who was confirmed or suspected to have Coronavirus / COVID-19? documented as of this encounter Last Filed Vital Signs Vital Sign Reading Time Taken Comments Blood Pressure 118/76 05/21/2020 1:09 PM CDT Pulse 76 05/21/2020 1:09 PM CDT Temperature 36.7 C (98 F) 05/21/2020 1:09 PM CDT Respiratory Rate 18 05/21/2020 1:09 PM CDT Oxygen Saturation - - Inhaled Oxygen Concentration - - Weight 82.6 kg (182 lb) 05/21/2020 1:09 PM CDT Height 160 cm (5' 3") 05/21/2020 1:09 PM CDT Body Mass Index 32.24 05/21/2020 1:09 PM CDT documented in this encounter Progress Notes Montse Ocasio PA-C - 05/21/2020 1:00 PM CDTYaneth Dobbs is a 24 year old female presented for vaginal pain. Vaginal pain started on 1wk ago. Pain in the vaginal area, and also in the LLQ pelvis area.. + vaginal discharge. no vaginal itching. no vaginal odor. not associated with menstrual cycle. not associated with intercourse. no vaginal douching. + history of prior infection: +BV +CT. + cotton underwear. ROS: Denies chest pain, SOB, fever/chill, abdominal pain, vaginal bleeding/spotting, dysuria. BP: (118)/(76) Temp: [36.7 C (98 F)] Temp source: Oral (05/21 1309) Pulse: [76] Resp: [18] SpO2: -- Height: [5' 3" (160 cm)] Weight: [182 lb (82.6 kg)] BMI (calculated): [32.24] NAD RRR Breathing unlabored External genitalia: no erythema. no lesions. no Pain reproduced along the posterior edge of the vestibule bilaterally and at posterior fourchette with the cotton-tip test. Pain also reproduced with small speculum at insertion of the introitus. Speculum exam: + vaginal discharge (whitish). no odor. Normal cervix. Bimanual exam: + Pain along the anterior vaginal and sidewalls noted during exam, muscle appears tense Vaginal discharge (primary encounter diagnosis) Plan: POCT URINALYSIS W/O SPECIFIC GRAVITY Abdominal pain, left lower quadrant Plan: POCT TEST Vaginal pain Plan: POCT TEST UPT-neg UA- wnl Pelvic us ordered. MDL swab collected, pending results. Feminine hygiene reviewed. Follow-up PRN if symptoms do not resolved, improved, or worsened Montse Ocasio PA-C 05/21/2020 1:18 PM documented in this encounter Plan of Treatment Date Type Specialty Care Team Description 09/27/2020 Office Visit Obstetrics & Gynecology Montse Ocasio PA-C [address] [place] [address] [phone] Name Type Priority Associated Diagnoses Order S chedule US PELVIS COMPLETE WITH IMAGING Routine Abdominal pain, l eft Expected: TRANSVAGINAL lower quadrant 05/21/2020, Expires: Vaginal pain 05/21/2021 Health Maintenance Due Date Last Done Comments MENINGOCOCCAL B VACCINES (1 2007 of 2 - Risk Bexsero 2-dose series) INFLUENZA VACCINE (#1) 2020 07/25/2019, 09/08/2012 Depression Screening 11/29/2020 11/29/2019 CHLAMYDIA SCREENING 03/06/2021 03/06/2020, 01/10/2020, 12/25/2019, Additional history exists PAP SMEAR 02/22/2022 02/22/2019 DTaP,Tdap,and Td Vaccines (8 11/15/2029 11/15/2019, 009, - Td) 08/15/2004, Additional history exists HPV VACCINES Completed 06/06/2010, 12/13/2009, 10/08/2009 MENINGOCOCCAL VACCINE Completed 03/27/2014, 10/08/2009 VARICELLA VACCINES Completed 01/28/2020, 09/18/1998, 09/04/1998 PNEUMOCOCCAL 0-64 YEARS Aged Out No longe r eligible COMBINED SERIES based on patient 's age to complete this topic documented as of this encounter Procedures Procedure Name Priority Date/Time Associated Diagnosis Comme nts POCT URINALYSIS W/O Routine 05/21/2020 Vaginal discharge Res ults for this SPECIFIC GRAVITY procedure a re in the results section . POCT TEST Routine 05/21/2020 Abdominal pain, left Results for this lower quadrant procedure are in the Vaginal pain results section . documented in this encounter Results POCT TEST (05/21/2020) Pathologist Sig nature POCT PREG Negative On board controls acceptable Yes with C Line POCT PREG LOT # POCT PREG TEST DATE Specimen Urine - URINE, CLEAN CATCH POCT URINALYSIS W/O SPECIFIC GRAVITY (05/21/2020) Pathologist Sig nature POCT PH U 6.5 5 - 8 mg/dl POCT U LEUK EST neg Negative - Negative POCT U NIT neg Negative - Negative POCT U PROT neg Negative - Negative POCT U GLU neg Negative - Negative POCT U KETONE neg Negative - Negative POCT U BLD neg Negative - Negative Specimen Urine - URINE, CLEAN CATCH documented in this encounter Visit Diagnoses Diagnosis Vaginal discharge - Primary Leukorrhea, not specified as infective Abdominal pain, left lower quadrant Vaginal pain Unspecified symptom associated with fema le genital organs documented in this encounter Insurance Payer Benefit Plan / Subscriber ID Effective Dates Phone Addre ss Type Group [place] [employer] [place] [employer] [id number] 2019-[employer] Medicaid HEALTH PLAN - [employer] [facility] MEDICAID documented as of this encounter
--- OUTSIDE RECORDS SUMMARY | 2020-07-26 22:12 | XMS REPORT | Summary of Care ---
:1995 Author Organization [facility] Address [address] [place] [address] Care Team Providers Name Role Phone Pcp, Does Not Have A Primary Care Provider Reason for Referral Radiology Services (Routine) Status Reason Specialty Diagnoses / Referred By Referred To Procedures Contact Contact New Request Diagnostic Diagnoses Abdominal pain, left lower quadrant Vaginal pain Vanaphan, Radiology Procedures US PELVIS COMPLETE WITH TRANSVAGINAL JILLIAN Willard [address] [place] [phone] Reason for Visit Reason Comments Vaginal Discharge VAGINAL PAIN Encounter Details Date Type Department Care Team Description 05/21/2020 Office Visit [facility] Women's Montse Ocasio Vagi nal discharge (Primary Dx); [facility] JILLIAN Abdominal pain, left lower quadrant; [address] [place] [address], [address] [place] [address] [place], [place] [phone] Allergies Active Allergy Reactions Severity Noted [...] symptoms do not resolved, improved, or worsened oMntse Ocasio PA-C 05/21/2020 1:18 PM documented in this encounter Plan of Treatment Date Type Specialty Care Team Description 09/27/2020 Office Visit Obstetrics & Gynecology Montse Ocasio PA-C [address] [place] [phone] Name Type Priority Associated Diagnoses Order [...] Effective Dates Phone Addre ss Type Group [place] [facility] [place]DR[facility] [id number] 2019-Pres[employer] Medicaid HEALTH PLAN - [email or web address] [facility] MEDICAID documented as of this encounter
--- OUTSIDE RECORDS SUMMARY | 2020-07-26 22:12 | XMS REPORT | Summary of Care ---
:1995 Author Organization [facility] Address [address] [place] [address] Care Team Providers Name Role Phone Pcp, Does Not Have A Primary Care Provider Reason for Referral Radiology Services (Routine) Status Reason Specialty Diagnoses / Referred By Referred To Procedures Contact Contact New Request Diagnostic Diagnoses Abdominal pain, left lower quadrant Vaginal pain Vanaphan, Radiology Procedures US PELVIS COMPLETE WITH TRANSVAGINAL JILLIAN Willard [address] [place] [phone] Reason for Visit Reason Comments Vaginal Discharge VAGINAL PAIN Encounter Details Date Type Department Care Team Description 05/21/2020 Office Visit [facility] Women's Montse Ocasio Vagi nal discharge (Primary Dx); [facility] JILLIAN Abdominal pain, left lower quadrant; [address] [place] [address], [address] [place] [address] [place], [place] [phone] Allergies Active Allergy Reactions Severity Noted [...] Visit Obstetrics & Gynecology Montse Ocasio PA-C [address] [place] [address] [phone] Name Type Priority Associated Diagnoses Order [...] Effective Dates Phone Addre ss Type Group [place] [facility] [place] [id number] 2019-Presen Medicaid HEALTH PLAN - [employer] [facility] MEDICAID documented as of this encounter
--- OUTSIDE RECORDS SUMMARY | 2020-07-26 22:13 | XMS REPORT | Summary of Care ---
:1995 Author Organization [facility] - [facility] Address [address] [place] [address] Care Team Providers Name Role Phone Pcp, Does Not Have A Primary Care Provider Reason for Visit Reason Comments TEST RESULTS MDL / Aerobic Vaginitis Posi tive and Anirudh Albicans Positive Encounter Details Date Type Department Care Team Description 05/29/2020 Telephone [facility] Women's Montse Ocasio, TEST RESULTS (MDL / [facility] [place] PACelestine Aerobic Vaginitis 146 [facility] [address] [facility] Pos[address] e [address], [address] Drive Albicans Positive) [facility] [phone] [place], [place] [phone] Allergies Active Allergy Reactions Severity Noted Date Comments Codeine Itching 10/17/2016 documented as of this encounter (statuses as of 05/31/2020) Medications Medication Sig Dispensed Refills Start Date End Date Status FLUoxetine 10 mg Take 1 capsule by 30 capsule 1 02/27/2020 Active capsuleIndications: mouth daily. depression fluconazole 200 mg Take 1 tablet by 1 tablet 0 05/30/2020 Active tabletIndications: mouth daily for 1 Vaginal anirudh day. clindamycin Insert 1 30 Each 0 05/30/2020 06/29/2020 Active (CLEOCIN) 2 % Applicator into creamIndications: vagina at bedtime Chronic vaginitis for 30 days. documented as of this encounter (statuses as of 05/31/2020) Active Problems Problem Noted Date Routine follow-up 02/27/2020 depression 02/27/2020 History of anxiety 12/14/2019 History of depression 12/14/2019 documented as of this encounter (statuses as of 05/31/2020) Resolved Problems Problem Noted Date Resolved Date [...] as of this encounter (statuses as of 05/31/2020) Immunizations Name Administration Dates Next Due DPT/HIB [...] of this encounter Last Filed Vital Signs Not on filedocumented in this encounter Miscellaneous Notes Telephone Encounter - Evelia Montejo RN - 05/31/2020 8:47 AM CDTRN notified of results and medications. RN educated patient on taking the medications. Patient verbalized understanding and agrees to plan of care. Evelia Montejo RN 05/31/2020 8:48 AM Telephone Encounter - Montse Ocasio PA-C - 05/30/2020 9:48 AM CDTRx sent for clindamycin vag supp and diflucan. Telephone Encounter - Aj Siddiqui - 05/29/2020 3:50 PM CDTMDL RESULTS Suboptimal Vaginal Health Aerobic Vaginitis POSITIVE (Enterococcus Faecalis Positive & Staphylococcus Aureus Positive) Anirudh Albicans Positive Placed on provider desk for signature and review and Prescribing needs. elephone Encounter - Lucinda Jackson Corinna - 05/29/2020 1:22 PM CDTFAX FROM [facility] documented in this encounter Plan of Treatment Date Type Specialty Care Team Description 09/27/2020 Office Visit Obstetrics & Gynecology Montse Ocasio PA-C [address] [place] [address] [phone] Health Maintenance Due Date Last Done Comments [...] this topic documented as of this encounter Results Not on filedocumented in this encounter Visit Diagnoses Diagnosis Vaginal anirudh - Primary Candidiasis of vulva and vagina Chronic vaginitis Vaginitis and vulvovaginitis, unspecifie d documented in this encounter Insurance Payer Benefit Plan / Subscriber ID Effective Dates Phone Addre ss Type Group [place] CHILDR[facility] [place] CHILDRENS [id number] 2019-Presen Medicaid HEALTH PLAN - HEALTH MANAGED MEDICAID documented as of this encounter
--- OUTSIDE RECORDS SUMMARY | 2020-07-26 22:13 | XMS REPORT | Summary of Care ---
:1995 Author Organization [facility] - Health Address [address] [place] [address] Care Team Providers Name Role Phone Pcp, Does Not Have A Primary Care Provider Encounter Details Date Type Department Care Team Description 05/21/2020 Orders Only [facility] Doctor Unassigned, No [address] [facility] Name [address] [address] Allergies Active Allergy Reactions Severity Noted Date Comments Codeine Itching 10/17/2016 documented as of this encounter (statuses as of 06/07/2020) Medications Medication Sig Dispensed Refills Start Date End Date Status FLUoxetine 10 mg Take 1 capsule by 30 capsule 1 02/27/2020 Active capsuleIndications: mouth daily. depression documented as of this encounter (statuses as of 06/07/2020) Active Problems Problem Noted Date Routine follow-up 02/27/2020 depression 02/27/2020 History of anxiety 12/14/2019 History of depression 12/14/2019 documented as of this encounter (statuses as of 06/07/2020) Resolved Problems Problem Noted Date Resolved Date [...] as of this encounter (statuses as of 06/07/2020) Immunizations Name Administration Dates Next Due DPT/HIB [...] Signs Not on filedocumented in this encounter Plan of Treatment Date Type Specialty Care Team Description 09/27/2020 Office Visit Obstetrics & Gynecology Montse Ocasio PA-C [address] [place] [address] [phone] Health Maintenance Due Date Last Done [...] Name Priority Date/Time Associated Diagnosis Comme nts SCANNED LAB RESULTS Routine 05/21/2020 12:01 AM CDT documented in this encounter Results SCANNED LAB RESULTS (05/21/2020 12:01 AM CDT) Specimen Performing Organization Address City/State/Zipcode Phone Number HIM documented in this encounter Insurance Payer Benefit Plan / Subscriber ID Effective Dates Phone Addre ss Type Group [place] [facility] [place] CH[place]DRENS [id number] 2019-Pres[employer] Medicaid HEALTH PLAN - HEALTH MANAGED MEDICAID documented as of this encounter
== END 2020-07-25 19:15 | disposition home or self-care (01) ==
LOC: ER 16:56
DX: R10.9 Unspecified abdominal pain (principal); E28.2 Polycystic ovarian syndrome; Z88.5 Allergy status to narcotic agent; Z87.891 Personal history of nicotine dependence
CPT/HCPCS: 85025; 80048; 36415; 81025; 80076; 83690; 74177; 76856; 96375; 96374; 99284; Q9967; J2175; J2405; 81003; 81015

== ENCOUNTER 2020-08-12 17:44 | Emergency (ER) | payer OTHER ==
--- OUTSIDE RECORDS SUMMARY | 2020-08-12 17:46 | XMS REPORT | Summary of Care ---
:1995 Author Organization [facility] Address [address] [place] [address] Care Team Providers Name Role Phone Pcp, Does Not Have A Primary Care Provider Reason for Referral Radiology Services (Routine) Status Reason Specialty Diagnoses / Referred By Referred To Procedures Contact Contact New Request Diagnostic Diagnoses Abdominal pain, left lower quadrant Vaginal pain Vanaphan, Radiology Procedures US PELVIS COMPLETE WITH TRANSVAGINAL JILLIAN Willard [address] [place] [phone] Reason for Visit Reason Comments Vaginal Discharge VAGINAL PAIN Encounter Details Date Type Department Care Team Description 05/21/2020 Office Visit [facility] Women's Montse Ocasio Vagi nal discharge (Primary Dx); [facility] JILLIAN Abdominal pain, left lower quadrant; [address] [place] [address], [address] [place] [address] [place], [place] [phone] Allergies Active Allergy Reactions Severity Noted [...] Visit Obstetrics & Gynecology Montse Ocasio PA-C [address] [place] [address] [phone] Name Type Priority Associated Diagnoses Order [...] Effective Dates Phone Addre ss Type Group [place] [facility] [place] [id number] 2019-Presen Medicaid HEALTH PLAN - [employer] [facility] MEDICAID documented as of this encounter
--- OUTSIDE RECORDS SUMMARY | 2020-08-12 17:46 | XMS REPORT | Continuity of Care Document ---
:1995 Author Organization [facility] t Address [address] [place] [address] Care Team Providers Name Role Phone Ninfa [...] 2020-05-29 2020-05-29 Telephone EZEQUIEL Ocasio [id number] 00:00:00 00:00:00 Montse Rosario [id number] [place] [id number] Rachel [phone] [address] 2020-05-21 2020-05-21 Office EZEQUIEL Ocasio [id number] 12:50:11 13:30:31 Visit Montse Rosario [id number] [place] [id number] Rachel [phone] [address] 2020-05-21 2020-05-21 Orders Doctor NOVA [id number] 00:00:00 00:00:00 Only Unassigned, HAWK [id number] [place] [id number] [phone] [phone] Results This patient has no known results.
--- OUTSIDE RECORDS SUMMARY | 2020-08-12 17:47 | XMS REPORT | Summary of Care ---
:1995 Author Organization [facility] - [facility] Address [address] [place] [address] Care Team Providers Name Role Phone Pcp, Does Not Have A Primary Care Provider Reason for Visit Reason Comments TEST RESULTS MDL / Aerobic Vaginitis Posi tive and Anirudh Albicans Positive Encounter Details Date Type Department Care Team Description 05/29/2020 Telephone [facility] Women's Montse Ocasio, TEST RESULTS (MDL / Healthcare- [place] PACelestine Aerobic Vaginitis 146 [facility] [address] [facility] Pos[address] e [address], [address] Drive Albicans Positive) [facility] [phone] [place], [place] [phone] Allergies Active Allergy Reactions Severity Noted Date [...] Visit Obstetrics & Gynecology Montse Ocasio PA-C [address] [place] [address] [phone] Health Maintenance Due Date Last Done [...] Effective Dates Phone Addre ss Type Group [place] [facility] [place] CHILDRENS [id number] 2019-Presen Medicaid HEALTH PLAN - HEALTH MANAGED MEDICAID documented as of this encounter
--- OUTSIDE RECORDS SUMMARY | 2020-08-12 17:47 | XMS REPORT | Summary of Care ---
:1995 Author Organization [facility] - Health Address [address] [place] [address] Care Team Providers Name Role Phone Pcp, Does Not Have A Primary Care Provider Encounter Details Date Type Department Care Team Description 05/21/2020 Orders Only [facility] Doctor Unassigned, No 301 [facility] Name [address] [address] Allergies Active Allergy Reactions Severity Noted Date [...] Visit Obstetrics & Gynecology Montse Ocasio PA-C [address] [place] [address] [phone] Health Maintenance Due Date Last Done [...] Effective Dates Phone Addre ss Type Group [place] [facility] [place] CH[place]DRENS [id number] 2019-Presen Medicaid HEALTH PLAN - HEALTH MANAGED MEDICAID documented as of this encounter
--- OUTSIDE RECORDS SUMMARY | 2020-08-12 17:47 | XMS REPORT | Summary of Care ---
:1995 Author Organization [facility] Address [address] [place] [address] Care Team Providers Name Role Phone Pcp, Does Not Have A Primary Care Provider Reason for Referral Radiology Services (Routine) Status Reason Specialty Diagnoses / Referred By Referred To Procedures Contact Contact New Request Diagnostic Diagnoses Abdominal pain, left lower quadrant Vaginal pain Vanaphan, Radiology Procedures US PELVIS COMPLETE WITH TRANSVAGINAL JILLIAN Willard [address] [place] [phone] Reason for Visit Reason Comments Vaginal Discharge VAGINAL PAIN Encounter Details Date Type Department Care Team Description 05/21/2020 Office Visit [facility] Women's Montse Ocasio Vagi nal discharge (Primary Dx); [facility] JILLIAN Abdominal pain, left lower quadrant; [address] [place] [address] [place] [address] [place], [place] [phone] Allergies Active Allergy Reactions Severity Noted [...] Visit Obstetrics & Gynecology Montse Ocasio PA-C [address] [place] [address] [phone] Name Type Priority Associated Diagnoses Order [...] Effective Dates Phone Addre ss Type Group [place] [facility] [place] [id number] 2019-Presen Medicaid HEALTH PLAN - [employer] [facility] MEDICAID documented as of this encounter
--- OUTSIDE RECORDS SUMMARY | 2020-08-12 17:47 | XMS REPORT | Summary of Care ---
:1995 Author Organization [facility] Address [address] [place] [address] Care Team Providers Name Role Phone Pcp, Does Not Have A Primary Care Provider Reason for Referral Radiology Services (Routine) Status Reason Specialty Diagnoses / Referred By Referred To Procedures Contact Contact New Request Diagnostic Diagnoses Abdominal pain, left lower quadrant Vaginal pain Vanaphan, Radiology Procedures US PELVIS COMPLETE WITH TRANSVAGINAL JILLIAN Willard [address] [place] [phone] Reason for Visit Reason Comments Vaginal Discharge VAGINAL PAIN Encounter Details Date Type Department Care Team Description 05/21/2020 Office Visit [facility] Women's Montse Ocasio Vagi nal discharge (Primary Dx); [facility] JILLIAN Abdominal pain, left lower quadrant; [address] [place] [address], [address] [place] [address] [place], [place] [phone] Allergies Active Allergy Reactions Severity Noted [...] Obstetrics & Gynecology Montse Ocasio PA-C [address] [place] [address] [phone] Name Type Priority Associated Diagnoses Order [...] Effective Dates Phone Addre ss Type Group [place]DR[facility] [place] CH[place]DRENS [id number] 2019-Presen Medicaid HEALTH PLAN - [employer] [facility] MEDICAID documented as of this encounter
[2020-08-12] MEDS ORDERED: DIPHENHYDRAMINE 50 MG/ML VIAL ONE (18:57)
[2020-08-12] MEDS ORDERED: METOCLOPRAMIDE 10 MG/2mL INJ ONE (18:57)
[2020-08-12] MEDS ORDERED: NA CHLORIDE 0.9% 1,000 ML ONE (18:58)
[2020-08-12] MEDS ORDERED: KETOROLAC 30 MG/ML INJ ONE (18:58)
[2020-08-12] MEDS ORDERED: NA CHLORIDE 0.9% 50 ML IV ONE (19:03)
[2020-08-12 19:39] LABS: Urine Blood NEGATIVE (NEG); Urine Glucose NEGATIVE (NEG); Urine Protein NEGATIVE (NEG); Urine Specific Gravity 1.025 (1.005-1.030)
--- NOTE | 2020-08-12 19:55 | EDPHYS ---
Physician Documentation [facility] Name: Yaneth Wang Age: 24 yrs Sex: Female : 1995 Arrival Date: 08/12/2020 Time: 17:46 Bed 15 Private MD: ED Physician Sky Che HPI: 08/12 18:15 This 24 yrs old Female presents to ER via Ambulatory with complaints of cp Nausea, Migraine. 18:15 The patient presents to the emergency department with nausea, that is mild, vomiting, cp that is intermittent. 18:16 Onset: The symptoms/episode began/occurred 3 day(s) ago. Possible causes: unknown. cp Associated signs and symptoms: Pertinent positives: diarrhea, headache, Pertinent negatives: fever. 18:16 The patient has experienced similar episodes in the past, multiple times, this headache cp lasting longer than previous headaches. Historical: - Allergies: 17:54 Codeine; ll1 - PMHx: 17:54 polycystic ovary disease; Ovarian cyst; ll1 - PSHx: 17:54 ovarian cyst removed.; ll1 - Immunization history:: Flu vaccine is not up to date. - Social history:: Smoking status: Patient denies any tobacco usage or history of. ROS: 18:20 Constitutional: Negative for body aches, chills, fever, poor PO intake. cp 18:20 Eyes: Negative for injury, pain, redness, and discharge. cp 18:20 ENT: Negative for drainage from ear(s), ear pain, sore throat, difficulty swallowing, difficulty handling secretions. 18:20 Cardiovascular: Negative for chest pain, palpitations. 18:20 Respiratory: Negative for cough, shortness of breath, wheezing. 18:20 Abdomen/GI: Positive for nausea, Negative for abdominal pain, vomiting, diarrhea, constipation. 18:20 : Negative for urinary symptoms. 18:20 Skin: Negative for rash. 18:20 Neuro: Positive for headache, Negative for altered mental status, weakness. 18:20 All other systems are negative. Exam: 18:30 Constitutional: The patient appears in no acute distress, alert, awake, non-toxic, well cp developed, well nourished. 18:30 Head/Face: Normocephalic, atraumatic. cp 18:30 Eyes: Periorbital structures: appear normal, Pupils: equal, round, and reactive to light and accomodation, Extraocular movements: intact throughout, Conjunctiva: normal, no exudate, no injection, Sclera: no appreciated abnormality, Lids and lashes: appear normal, bilaterally. 18:30 ENT: External ear(s): are unremarkable, Nose: is normal, Mouth: Lips: moist, Oral mucosa: pink and intact, moist, Posterior pharynx: Airway: no evidence of obstruction, patent, Tonsils: are normal in appearance, erythema, is not appreciated, exudate, is not appreciated. 18:30 Neck: ROM/movement: is normal, is supple, without pain, no range of motions limitations, no meningismus, Lymph nodes: no appreciated lymphadenopathy. 18:30 Chest/axilla: Inspection: normal, Palpation: is normal, no crepitus, no tenderness. 18:30 Cardiovascular: Rate: normal, Rhythm: regular. 18:30 Respiratory: the patient does not display signs of respiratory distress, Respirations: normal, no use of accessory muscles, no retractions, labored breathing, is not present, Breath sounds: are clear throughout, no decreased breath sounds, no stridor, no wheezing. 18:30 Abdomen/GI: Inspection: abdomen appears normal, Palpation: abdomen is soft and non-tender, in all quadrants, voluntary guarding, is not appreciated, involuntary guarding, is not appreciated. 18:30 Back: pain, is absent, ROM is normal. 18:30 Skin: no rash present. 18:30 Neuro: Orientation: to person, place \T\ time. Mentation: is normal, Cerebellar function: is grossly normal, Motor: moves all fours, strength is normal, Sensation: is normal. Vital Signs: 17:52 BP 124 / 79; Pulse 78; Resp 17; Temp 98.4; Pulse Ox 97% ; Weight 79.83 kg; Height 5 ft. ll1 3 in. (160.02 cm); Pain 10/10; 19:20 BP 119 / 78; Pulse 71; Resp 16; Pulse Ox 98% on R/A; jb4 17:52 Body Mass Index 31.18 (79.83 kg, 160.02 cm) ll1 MDM: 18:08 Patient medically screened. cp 19:53 Data reviewed: vital signs, nurses notes, lab test result(s), and as a result, I will cp discharge patient. 19:53 Differential diagnosis: migraine, tension headache, COVID-19. Counseling: I had a cp detailed discussion with the patient and/or guardian regarding: the historical points, exam findings, and any diagnostic results supporting the discharge/admit diagnosis, lab results, to return to the emergency department if symptoms worsen or persist or if there are any questions or concerns that arise at home. Response to treatment: the patient's symptoms have markedly improved after treatment. ED course: VSS. Will discharge to home for continued monitoring. Recommend quarantine while awaiting results of COVID-19 testing. 08/12 18:09 Order name: COVID-19 cp 08/12 18:45 Order name: Urine Dipstick--Ancillary (enter results) eb 08/12 18:45 Order name: Urine --Ancillary (enter results) eb 08/12 18:09 Order name: Urine Dipstick-Ancillary (obtain specimen); Complete Time: 18:42 cp 08/12 18:09 Order name: Urine Test (obtain specimen); Complete Time: 18:42 cp 08/12 18:09 Order name: IV; Complete Time: 19:06 cp Administered Medications: Discontinued: NS 0.9% 1000 ml IV at 1 bolus Per protocol; 1000 mL bolus 19:01 Drug: Benadryl 25 mg Route: IVP; Site: left antecubital; zb 20:05 Follow up: Response: No adverse reaction; Marked relief of symptoms jb4 19:01 Drug: TORadol - Ketorolac 15 mg Route: IVP; Site: left antecubital; zb 20:05 Follow up: Response: No adverse reaction jb4 19:02 Drug: Reglan 10 mg Route: IVP; Site: left antecubital; zb 20:05 Follow up: Response: No adverse reaction; Marked relief of symptoms jb4 19:06 Drug: NS 0.9% 1000 ml Route: IV; Rate: 1 bolus; Site: left antecubital; zb 20:06 Follow up: Response: No adverse reaction; IV Status: Order to discontinue infusion jb4 Point of Care Testing: Urine : 19:05 hCG Reading: Negative; Control Reading: Positive; jp3 Disposition: 08/12/20 19:54 Discharged to Home. Impression: Headache. - Condition is Stable. - Discharge Instructions: Migraine Headache. - Prescriptions for Ibuprofen 800 mg Oral Tablet - take 1 tablet by ORAL route every 8 hours As needed take with food; 30 tablet. Zofran 4 mg Oral Tablet - take 1 tablet by ORAL route every 12 hours As needed; 20 tablet. - Medication Reconciliation Form, Thank You Letter, Antibiotic Education, Prescription Opioid Use, Work release form form. - Follow up: Private Physician; When: 2 - 3 days; Reason: Recheck today's complaints. - Problem is new. - Symptoms have improved. Addendum: 08/16/2020 19:29 Co-signature as Attending Physician, Sky Che MD. r n Signatures: Dispatcher [employer] EDMS Sky Che MD MD rn Yan Meyer PA PA cp Bryson, James RN RN jb4 Sharlene Fry RN RN ll1 Izabela Singh RN RN zb Corrections: (The following items were deleted from the chart) 08/12 20:06 19:54 08/12/2020 19:54 Discharged to Home. Impression: Headache. Condition is Stable. jb4 Forms are Medication Reconciliation Form, Thank You Letter, Antibiotic Education, Prescription Opioid Use. Follow up: Private Physician; When: 2 - 3 days; Reason: Recheck today's complaints. Problem is new. Symptoms have improved. cp
--- NOTE | 2020-08-12 19:55 | ER ---
Nurse's Notes [facility] Name: Yaneth Wang Age: 24 yrs Sex: Female : 1995 Arrival Date: 08/12/2020 Time: 17:46 Bed 15 Private MD: Diagnosis: Headache Presentation: 08/12 17:52 Chief complaint: Patient states: MCGRAW for 3 days with nausea. Diarrhea for 2 days. BP ll1 today 155/85, HR 105. No known fever. Coronavirus screen: Client denies travel out of the [place] in the last 14 days. diarrhea, headache, nausea, Client presents with at least one sign or symptom that may indicate coronavirus-19. Standard/surgical mask placed on the client. Ebola Screen: Patient denies travel to an Ebola-affected area in the 21 days before illness onset. Initial Sepsis Screen: Does the patient meet any 2 criteria? No. Patient's initial sepsis screen is negative. Does the patient have a suspected source of infection? Yes: Other: headache. Risk Assessment: Do you want to hurt yourself or someone else? Patient reports no desire to harm self or others. Onset of symptoms was August 10, 2020. 17:52 Method Of Arrival: Ambulatory ll1 17:52 Acuity: NIXON 3 ll1 Historical: - Allergies: 17:54 Codeine; ll1 - PMHx: 17:54 polycystic ovary disease; Ovarian cyst; ll1 - PSHx: 17:54 ovarian cyst removed.; ll1 - Immunization history:: Flu vaccine is not up to date. - Social history:: Smoking status: Patient denies any tobacco usage or history of. Screenin:00 Fall Risk None identified. No fall in past 12 months (0 pts). No secondary diagnosis (0 zb pts). Ambulatory Aid- None/Bed Rest/Nurse Assist (0 pts). Gait- Normal/Bed Rest/Wheelchair (0 pts) Mental Status- Oriented to own ability (0 pts). Total Shea Fall Scale indicates No Risk (0-24 pts). 19:22 Abuse screen: Denies threats or abuse. Denies injuries from another. Nutritional zb screening: No deficits noted. Tuberculosis screening: No symptoms or risk factors identified. Possible symptoms: None. Assessment: 18:20 General: Appears in no apparent distress. comfortable, well groomed, Behavior is calm, zb cooperative, appropriate for age, Reports fatigue for 2-3 days, Denies fever, c/o nausea and vomiting for past 3 days and diarrhea for the past 2 days with migraine and light sensitivity. pt states earlier this morning she took tylenol extra strength for migraine. medication didn't help. . Pain: Complains of pain in base of the skull. Neuro: Level of Consciousness is awake, alert, obeys commands, Oriented to person, place, time, Gait is steady, Speech is normal, Reports headache. Cardiovascular: No deficits noted. Respiratory: No deficits noted. GI: Reports diarrhea, nausea, vomiting, since pass 2-3 days. : No deficits noted. No signs and/or symptoms were reported regarding the genitourinary system. Derm: No deficits noted. No signs and/or symptoms reported regarding the dermatologic system. Musculoskeletal: No deficits noted. No signs and/or symptoms reported regarding the musculoskeletal system. 19:05 Reassessment: Patient appears in no apparent distress at this time. Patient and/or jb4 family updated on plan of care and expected duration. Pain level reassessed. Patient is alert, oriented x 3, equal unlabored respirations, skin warm/dry/pink. 20:03 Reassessment: Patient appears in no apparent distress at this time. Patient and/or jb4 family updated on plan of care and expected duration. Pain level reassessed. Patient is alert, oriented x 3, equal unlabored respirations, skin warm/dry/pink. Vital Signs: 17:52 BP 124 / 79; Pulse 78; Resp 17; Temp 98.4; Pulse Ox 97% ; Weight 79.83 kg; Height 5 ft. ll1 3 in. (160.02 cm); Pain 10/10; 19:20 BP 119 / 78; Pulse 71; Resp 16; Pulse Ox 98% on R/A; jb4 17:52 Body Mass Index 31.18 (79.83 kg, 160.02 cm) ll1 ED Course: 17:46 Patient arrived in ED. ds1 17:53 Triage completed. ll1 17:54 Arm band placed on Patient placed in an exam room, on a stretcher. ll1 17:58 Yan Meyer PA is PHCP. cp 17:58 Sky Che MD is Attending Physician. cp 18:30 PT swabbed for COVID-19. Urine collected: clean catch specimen, clear, neftaly colored. jp3 18:30 Patient maintains SpO2 saturation greater than 95% on room air. jp3 18:40 Inserted saline lock: 20 gauge in left antecubital area, using aseptic technique. Blood jp3 collected. 18:45 No provider procedures requiring assistance completed. zb 19:05 Bed in low position. Call light in reach. Side rails up X 1. Verbal reassurance given. jp3 Pulse ox on. NIBP on. 19:16 Hemant Tobar, RN is Primary Nurse. jb4 20:03 IV discontinued, intact, bleeding controlled, No redness/swelling at site. Pressure jb4 dressing applied. Administered Medications: Discontinued: NS 0.9% 1000 ml IV at 1 bolus Per protocol; 1000 mL bolus 19:01 Drug: Benadryl 25 mg Route: IVP; Site: left antecubital; zb 20:05 Follow up: Response: No adverse reaction; Marked relief of symptoms jb4 19:01 Drug: TORadol - Ketorolac 15 mg Route: IVP; Site: left antecubital; zb 20:05 Follow up: Response: No adverse reaction jb4 19:02 Drug: Reglan 10 mg Route: IVP; Site: left antecubital; zb 20:05 Follow up: Response: No adverse reaction; Marked relief of symptoms jb4 19:06 Drug: NS 0.9% 1000 ml Route: IV; Rate: 1 bolus; Site: left antecubital; zb 20:06 Follow up: Response: No adverse reaction; IV Status: Order to discontinue infusion jb4 Point of Care Testing: Urine : 19:05 hCG Reading: Negative; Control Reading: Positive; jp3 Outcome: 19:54 Discharge ordered by MD. castro 20:03 Discharged to home ambulatory. jb4 20:03 Condition: stable 20:03 Discharge instructions given to patient, Instructed on discharge instructions, follow up and referral plans. medication usage, Demonstrated understanding of instructions, follow-up care, medications, Prescriptions given X 2. 20:06 Patient left the ED. jb4 Addendum: 08/15/2020 13:07 Addendum: COVID-19 Result: Negative result given to RN to notify pt. Attempted to s s contact pt regarding negative COVID-19 swab results. Unable to leave voice mail due to the number provided was either not a working number, the voice mail has not been set up, or the voice mailbox is full.. Signatures: Anne Gates ds1 Letty Jackson, RN RN ss Yan Meyer PA PA cp Bryson, James RN RN jb4 Gustavo High jp3 Sharlene Fry RN RN ll1 Izabela Singh RN RN zb
[2020-08-12 20:33] VITALS: TEMP 98.4
[2020-08-12 20:35] VITALS: BP 119/78; O2SAT 98
== END 2020-08-12 20:06 | disposition home or self-care (01) ==
LOC: ER 17:44
DX: R51.9 Headache, unspecified (principal); Z20.828 Contact with and (suspected) exposure to other viral communicable diseases; Z88.5 Allergy status to narcotic agent
CPT/HCPCS: 96361; 81025; 81003; 96375; 96374; 99284; U0002; J2765; J1200; J7030